=== PATIENT | female | born 1940 | race African-American/Black ===

== ENCOUNTER 2018-03-20 05:40 | Day surgery (SDC) | payer MEDICARE, OTHER ==
[2018-03-16 13:00] LABS: BASOPHILS % (AUTO) 1.1 % (0.0-2.0); EOSINOPHILS % (AUTO) 2.7 % (0.0-3.0); HEMATOCRIT 36.2 % (37.0-47.0); HEMOGLOBIN 11.3 G/DL (12.0-16.0); MEAN CORPUSCULAR VOLUME 71 FL (80-99); MONOCYTES % (AUTO) 9.5 % (1.0-10.0); NEUTROPHILS % (AUTO) 36.7 % (45.0-75.0); PLATELET COUNT 235 K/UL (150-450); RED CELL DISTRIBUTION WIDTH 13.7 % (11.6-14.8)
[2018-03-16 13:10] LABS: ANION GAP 8 mmol/L (5-15); BLOOD UREA NITROGEN 21 mg/dL (7-18); CALCIUM 9.3 MG/DL (8.5-10.1); CARBON DIOXIDE 30 MMOL/L (21-32); CHLORIDE 102 MMOL/L (98-107); CREATININE 0.9 MG/DL (0.55-1.30); POTASSIUM 4.2 MMOL/L (3.5-5.1); SODIUM 140 MMOL/L (136-145)
--- NOTE | 2018-03-16 22:45 | Pre-op HX & Phy Repo 2 SIG ---
DATE OF ADMISSION: 03/20/2018 PRESURGICAL INTERNAL MEDICINE HISTORY AND PHYSICAL DATE OF EVALUATION: 03/16/2018 REASON FOR EVALUATION: I was asked by Dr. Frederick Lemons to see this 77-year-old female, who is going for elective surgery on the right eye on 03/20/2018. The patient has nuclear sclerotic cataract, right eye. The patient was examined. Chart was reviewed at [facility] Procedure. The patient has a cataract. Please see history and physical of visitor services specialist, Dr. Frederick Lemons. PAST MEDICAL HISTORY AND REVIEW OF SYSTEMS: Remarkable for history of hypertension, diabetes mellitus type 2, degenerative joint disease, history of stroke in 1998 with hemiplegia, and history of GERD. No history of myocardial infarction. No respiratory problem, asthma or bronchitis. Denies history of hepatitis. No renal failure. No thyroid problem. PAST SURGICAL HISTORY: Hysterectomy 40 years ago. FAMILY HISTORY: Mother from brain aneurysm and father unknown. ALLERGIES: Not known. PRESENT MEDICATIONS: Include Tylenol, Aleve, Bengay for knee pain, statin, blood pressure and diabetes medications, and Nexium. SOCIAL HISTORY: Denies tobacco, alcohol use, or street drugs. PHYSICAL EXAMINATION: GENERAL: Alert, well-developed and well-nourished female, in her 70s in no acute distress. Ambulates with a cane. VITAL SIGNS: Blood pressure 165/72, temperature 97.6, pulse 61 and regular, and respirations 20. O2 saturation 98%. SKIN: Dry and warm. No rashes. No ulceration. LYMPHATICS: Lymph nodes not enlarged. HEENT: Head is normocephalic. Ears, clear. Eyes, full description per Dr. Frederick Lemons. Mouth, clear and moist. Wears dentures upper and lower. NECK: Supple. No jugular venous distention. Carotids artery 2+. Trachea midline. CHEST: No deformity or asymmetry. HEART: No murmur. No S3 or S4. ABDOMEN: Soft, benign. Liver and spleen not enlarged. No rebound. EXTREMITIES: No edema. No varicose veins. No calf tenderness. NEUROLOGIC: Post CVA with hemiplegia . LABORATORY AND DIAGNOSTIC DATA: ECG, normal sinus rhythm, 61 per minute. T-wave abnormality, consider lateral ischemia. White blood cells 4.0, hemoglobin 11.3, and hematocrit 36.3. BUN 21, creatinine 0.9. Sugar 170. Calcium 9.3. Sodium 140, potassium 4.3. IMPRESSION: 1. Nuclear sclerotic cataract, right eye. 2. Hypertension. 3. Diabetes mellitus type 2, controlled. 4. Post cerebrovascular accident. 5. Gastroesophageal reflux disease. 6. Degenerative joint disease, knee. 7. EKG changes consistent with . The patient is asymptomatic. PLAN: Cataract extraction, right eye with intraocular lens implant per Dr. Frederick Lemons. CONCLUSION: The patient has multiple medical problems including hypertension, diabetes, history of stroke, history of degenerative joint disease, anemia, mild EKG changes, . The patient to be NPO after midnight 03/20/2018. The patient's condition is optimized for surgery. Thank you very much, Dr. Lemons, for privilege to participate in presurgical care of this interesting patient. Steven Rudolph M.D. DR: NAYLA JOB#: [id number] CC:
--- NOTE | 2018-03-17 14:40 | Operative Note - PDOC ---
Operative Note Operative Note Date of Operation/Procedure: Mar 20, 2018 Chief Complaint: Blurry Vision Pre-op Diagnosis: Nuclear Sclerotic Cataract Procedure: Cataract Extraction With Inner Ocular Lens Implant Right Eye Post-op Diagnosis: same as pre-op Surgeon: Frederick Lemons MD Anesthesia: MAC Specimen: none Complications: none Fluids: LR Estimated Blood Loss: none Drains: none Implant(s) used?: Yes Indications for Procedure Nuclear Sclerotic Cataract Right Eye Description of Procedure Cataract Extraction With Inner Ocular Lens Implant Right Eye Frederick Lemons MD Mar 17, 2018 14:40
--- NOTE | 2018-03-17 14:44 | Opthalmology H&P ---
Ophthalmology H&P H&P Chief Complaint: decreased vision in right eye HPI Vision Affects Ability to: read, manage personal affairs HPI Narrative Blurry Vision Exam Visual Acuity: OD:COUNTING FINGERS OS: 20/40 Tension: OD16 OS 19 Eye Exam: normal OU: external exam, palpebral fissure-width, marginal reflex distance, levator function, corneas, anterior chambers; findings: lens - +3 NS/ PSC OD>OS, fundus exam - Poor view Assessment/Plan Treatment Plan: cataract extraction w/ lens implant Goals of Treatment: improvement of vision, enhance quality of life Attestation Attestation The risks and benefits of the surgery as well as alternative procedures were explained to the patient in detail. Frederick Lemons MD Mar 17, 2018 14:44
--- NOTE | 2018-03-17 14:45 | Pre-Procedure Note/Attestation ---
Pre-Procedure Note/Attestation Complete Prior to Procedure Planned Procedure: right Procedure Narrative: Cataract Extraction With Inner Ocular Lens Implant Right Eye Indications for Procedure Pre-Operative Diagnosis: Nuclear Sclerotic Cataract Right Eye Attestation I attest that I discussed the nature of the procedure; its benefits; risks and complications; and alternatives (and the risks and benefits of such alternatives ), prior to the procedure, with the patient (or the patient's legal u.s. representative). I attest that, if there was a reasonable possibility of needing a blood transfusion, the patient (or the patient's legal u.s. representative) was given the [facility] standardized written summary, pursuant to the [place] Blood Safety Act ([place] Health and Safety Code # 1645, as amended). I attest that I re-evaluated the patient just prior to the surgery and that there has been no change in the patient's H&P, except as documented below: Frederick Lemons MD Mar 17, 2018 14:45
--- NOTE | 2018-03-17 18:03 | Cardiology Report ---
APPROVED REPORT EKG Measurement Heart [id number] Normal sinus rhythm Abnormal ECG
[2018-03-20] VITALS (8 sets, daily range): BP systolic 146–161; BP diastolic 52–78
[~2018-03-20] VITALS: Ht 154.9 cm; Wt 72.1 kg
[2018-03-20] MEDS: Tropicamide 1% Opth 15ml Soln RIGHT EYE SCH ×3 (06:54→07:12)
[2018-03-20] MEDS: Tobramycin Op Soln 0.3% 5ml RIGHT EYE SCH ×3 (06:54→07:12)
[2018-03-20] MEDS: Phenylephrine 10% Opth Soln 5ml RIGHT EYE SCH ×3 (06:54→07:12)
[2018-03-20] MEDS: Diclofenac Sod 0.1% Op Soln RIGHT EYE SCH ×3 (06:54→07:12)
[2018-03-20] MEDS: Cyclopentolate 1% Opth Sol 2ml RIGHT EYE SCH ×3 (06:54→07:12)
[2018-03-20] MEDS ORDERED: Akten 3.5% 1ml Btl RIGHT EYE ONE (07:00)
[2018-03-20] MEDS ORDERED: Proparacaine 0.5% Opth Soln 15ml RIGHT EYE ONE (07:00)
[2018-03-20] MEDS ORDERED: Tetracaine 0.5% Opth 4ml Soln RIGHT EYE ONE (07:00)
[2018-03-20] MEDS ORDERED: AMLODIPINE BESY10 MG ORAL (07:01)
[2018-03-20] MEDS ORDERED: SPIRONOLACTONE25 MG ORAL (07:01)
[2018-03-20] MEDS ORDERED: METFORMIN HCL500 M1 ORAL (07:01)
[2018-03-20] MEDS ORDERED: ASPIR 8181 MG ORAL (07:01)
[2018-03-20] MEDS ORDERED: LOSARTAN-HCTZ1 EACH ORAL (07:01)
[2018-03-20] MEDS ORDERED: BUSPIRONE HCL10 M1 ORAL (07:01)
[2018-03-20] MEDS ORDERED: CRESTOR20 MG ORAL (07:09)
[2018-03-20] MEDS ORDERED: HYDROCHLOROTH12.5 MG ORAL (07:09)
[2018-03-20] MEDS ORDERED: CALCIUM + D3 E1 EACH PO (07:09)
[2018-03-20] MEDS ORDERED: FERROUS SULFAT325 MG ORAL (07:09)
[2018-03-20] MEDS ORDERED: TRAZODONE HCL50 MG ORAL (07:09)
[2018-03-20] MEDS ORDERED: METOPROLOL SUCC50 MG ORAL (07:09)
[2018-03-20] MEDS ORDERED: LORATADINE10 M1 PO (07:09)
[2018-03-20] MEDS ORDERED: JANUVIA100 MG ORAL (07:09)
[2018-03-20] MEDS ORDERED: NEXIUM40 MG ORAL (07:09)
[2018-03-20] MEDS ORDERED: GLIMEPIRIDE4 MG ORAL (07:09)
[2018-03-20] MEDS ORDERED: LOSARTAN POTAS100 MG ORAL (07:09)
[2018-03-20] MEDS ORDERED: VITAMIN D250000 UNI1 ORAL (07:09)
[2018-03-20] MEDS ORDERED: LR 1000ml 1,000 ML IVLG SCH (08:10)
[2018-03-20] MEDS ORDERED: fentaNYL 100 mcg/2 mL IV PRN (08:15)
--- NOTE | 2018-03-20 08:16 | Anethesia Preoperative Eval ---
Anesthesia Pre-op PMH/ROS General Date of Evaluation: Mar 20, 2018 Time of Evaluation: 07:55 Anesthesiologist: Eh ASA Score: ASA 3 Mallampati Score Class I : Soft palate, uvula, fauces, pillars visible Class II: Soft palate, uvula, fauces visible Class III: Soft palate, base of uvula visible Class IV: Only hard plate visible Mallampati Classification: Class II Surgeon: Vesta Diagnosis: Cataract right eye Surgical Procedure: Cataract extraction with IOL Allergies: Coded Allergies: No Known Allergies (Unverified , 03/20/18) Medications: see eMAR Patient NPO?: Yes NPO Date: Mar 19, 2018 NPO Time: 14:00 Past Medical History Cardiovascular: Reports: HTN; Denies: CAD, [place], valve dz, arrhythmia, other Pulmonary: Denies: asthma, COPD, STEFF, other Gastrointestinal/Genitourinary: Denies: GERD, CRI, ESRD, other Neurologic/Psychiatric: Denies: dementia, CVA, depression/anxiety, TIA, other Endocrine: Reports: DM; Denies: hypothyroidism, steroids, other HEENT: Reports: cataract (R); Denies: cataract (L), glaucoma, [place] (L), [place] (R), other Hematology/Immune: Denies: anemia, DVT, bleeding disorder, other Musculoskeletal/Integumentary: Denies: OA, RA, DJD, DDD, edema, other PMH Narrative: HTN, DM PSxH Narrative: GARDENIA Anesthesia Pre-op Phys. Exam Physician Exam Last Vital Signs Date Time Temp Pulse Resp B/P (MAP) Pulse Ox O2 Delivery O2 Flow Rate FiO2 03/20/18 07:09 Room Air 03/20/18 06:57 97.4 61 18 152/67 98 Constitutional: NAD Neurologic: CN 2-12 intact Cardiovascular: RRR, no M/R/G Respiratory: CTA Gastrointestinal: S/NT/ND Airway Exam Mallampati Score: Class II MO: full ROM: full Dentures: upper, lower Anesthesia Pre-op A/P Labs No contraindication Risk Assessment & Plan Assessment: Class 3 patient for cataract extraction with IOL Plan: MAC Pre-Antibiotics Drug: None Lukasz Stauffer MD Mar 20, 2018 08:16
--- NOTE | 2018-03-20 08:17 | Immediate Post-Op Evaluation ---
Immediate Post-Op Evalulation Immediate Post-Op Evalulation Procedure: Cataract extraction with IOL right eye Date of Evaluation: Mar 20, 2018 Time of Evaluation: 09:25 IV Fluids: 200 Blood Pressure Systolic: 157 Blood Pressure Diastolic: 72 Pulse Rate: 70 Respiratory Rate: 17 O2 Sat by Pulse Oximetry: 96 Temperature (Fahrenheit): 98.7 Pain Score (1-10): 0 Nausea: No Vomiting: No Complications No complication Patient Status: awake, patent, none Hydration Status: adequate Drug: None Lukasz Stauffer MD Mar 20, 2018 08:17
[2018-03-20] MEDS ORDERED: Propofol 200mg/20ml IV ONE (08:30)
[2018-03-20] MEDS ORDERED: Midazolam 2mg/2ml Inj ONE (08:30)
[2018-03-20] MEDS ORDERED: NS Irrig 1000ml ONE (08:30)
[2018-03-20] MEDS ORDERED: Sterile Water Irrig 1000ml IRRIG ONE (08:30)
[2018-03-20] MEDS ORDERED: LR 1000ml ONE (08:30)
--- NOTE | 2018-03-20 09:27 | 48 Hour Post Anesthesia Eval ---
Post Anesthesia Evaluation Procedure: Cataract extraction with IOL right eye Date of Evaluation: Mar 20, 2018 Time of Evaluation: 09:50 Blood Pressure Systolic: 158 0: 70 Pulse Rate: 67 Respiratory Rate: 18 O2 Sat by Pulse Oximetry: 97 Airway: patent Nausea: No Vomiting: No Pain Intensity: 0 Hydration Status: adequate Cardiopulmonary Status: stable Mental Status/LOC: patient returned to baseline Follow-up Care/Observations: As per surgery Post-Anesthesia Complications: No anesthetic complication Follow-up care needed: N/A Lukasz Stauffer MD Mar 20, 2018 09:27
[2018-03-20] MEDS ORDERED: BSS 15ml BTL ONE (10:10)
[2018-03-20] MEDS ORDERED: Sodium Hyaluronate 14 mg/ml 0.85ml ONE (10:10)
[2018-03-20] MEDS ORDERED: BSS 500ml btl ONE (10:10)
[2018-03-20] MEDS ORDERED: Maxitrol Opth Oint 3.5gm ONE (10:30)
[2018-03-20] MEDS ORDERED: Dexamethasone 4mg/ml vial ONE (10:30)
[2018-03-20] MEDS ORDERED: Pilocarpine 1% Opth 15ml Soln ONE (10:30)
[2018-03-20] MEDS ORDERED: Pred Forte 1% Opth Susp 1ml ONE (10:30)
[2018-03-20] MEDS ORDERED: Povidone-Iodine 5% opth solution ONE (10:57)
[2018-03-20] MEDS ORDERED: EPINEPHrine 1mg/1ml Amp ONE (10:57)
--- NOTE | 2018-03-21 14:51 | Brief Operative Note ---
Immediate Post Operative Note Operative Note Chief Complaint: blurry vision Pre-op Diagnosis: Nuclear Sclerotic Cataract Right Eye Procedure: Phaco with IOL, Right Eye Post-op Diagnosis: Pseudophakia Post-op Diagnosis: same as pre-op Findings: consistent w/pre-op dx studies Surgeon: Vesta Anesthesiologist: Eh Anesthesia: MAC Specimen: none Complications: none Condition: stable Fluids: LR Estimated Blood Loss: none Drains: none Implant(s) used?: Yes Frederick Lemons MD Mar 21, 2018 14:51
--- NOTE | 2018-03-21 14:54 | Operative Note - PDOC ---
Operative Note Operative Note Date of Operation/Procedure: Mar 20, 2018 Chief Complaint: blurry vision Pre-op Diagnosis: Nuclear Sclerotic Cataract Right Eye Procedure: Phaco with IOL, Right Eye Post-op Diagnosis: Pseudophakia Post-op Diagnosis: same as pre-op Operative Findings: consistent w/pre-op dx studies Surgeon: Vesta Anesthesiologist: Eh Anesthesia: MAC Specimen: none Complications: none Condition: stable Fluids: LR Estimated Blood Loss: none Drains: none Implant(s) used?: Yes Indications for Procedure cataract Description of Procedure This patient has been complaining visually significant cataract in the affected eye with the best corrected visual acuity under moderate glare conditions worse. The patient complains of difficulties with glare in performing activities of daily living and wants to manage personal affairs with comfort and accuracy and see well enough to move with safety at home and outdoors. The risks, benefits and alternatives of the procedure were discussed with the patient in the office prior to scheduling surgery. All questions from the patient were answered after the surgical procedure was explained in detail. The risks of the procedure as explained to the patient include, but are not limited to, pain, infection, bleeding, loss of vision, retinal detachment, need for further surgery, loss of lens nucleus, double vision, etc. Alternative procedures were discussed which include, to do nothing or seek a second opinion. Informed consent for this procedure was obtained from the patient. The patient was referred to a primary care physician for a cardiopulmonary clearance prior to surgery, after proper evaluation was done patient was properly scheduled for outpatient surgery. The patient was brought to the operating room where the anesthesiologist established I.V. lines and cardiac monitoring leads. Mild intravenous sedation was administered. The patient was then prepared with a 5% solution of povidone -iodine to the conjunctival fornix and lashes, and a 5% solution of povidone- iodine to the lids and periorbital skin. The patient was then draped in the usual sterile fashion. A lid speculum was then placed in the operative eye. A keratome blade was then used to create a biplanar incision into the anterior chamber. Viscoelastics was then instilled into the anterior chamber. A curvilinear capsulorrhexis was then fashioned with an utrata forceps followed by G- 7 cannula for hydrodissection and hydro delineation of the lens nucleus. Paracentesis incision was made at 3 o'clock with sharp blade. The phacoemulsification unit, after being properly adjusted and tested, was then used to emulsify the nucleus followed by aspiration and irrigation of residual cortical material. Healon was then instilled into the anterior chamber. The corneal wound was then enlarged to the size of the optic with the jerilyn keratome blade. The intraocular lens was then inspected for right power and size and thought to be satisfactory. Then the lens was gently placed in the capsular bag. Positioning within the capsular bag was confirmed by direct visualization. Optic centration was accomplished with a Sinskey hook. Viscoelastics was removed from the anterior chamber using the irrigation and aspiration unit. The corneal wound was then tested for leaks and none were found. The lid speculum were then removed. Sponge and needle counts were correct. An eye patch and shield were placed over the operative eye. The patient was taken to the recovery room in stable condition. There were no complications. The patient tolerated the procedure well. The patient was then transferred to the ambulatory surgery unit in stable and satisfactory condition , was given detailed written instructions and asked to follow up in the office the next day. Frederick Lemons MD Mar 21, 2018 14:54
== END 2018-03-20 10:35 | disposition home or self-care (01) ==
LOC: SUR 05:40
DX: H25.11 Age-related nuclear cataract, right eye (principal); I10 Essential (primary) hypertension; E11.9 Type 2 diabetes mellitus without complications; M17.10 Unilateral primary osteoarthritis, unspecified knee; K21.9 Gastro-esophageal reflux disease without esophagitis; I69.951 Hemiplegia and hemiparesis following unspecified cerebrovascular disease affecting right dominant side; Z90.710 Acquired absence of both cervix and uterus
CPT/HCPCS: 36415; 66984; 80048; 82962; 85025; 93005; J0171; J1100; J2250; J2704; J3370; V2632; 94003; 94150

== ENCOUNTER 2019-06-27 11:21 | Inpatient (IN) | payer MEDICARE, OTHER ==
[~2019-06-27] VITALS: Ht 165.1 cm; Wt 83.0 kg
[~2019-06-27 11:21] MED LIST: AMLODIPINE BESY10 MG ORAL; ASPIR 8181 MG GT; BUSPIRONE HCL10 M1 ORAL; CALCIUM + D3 E1 EACH PO; CRESTOR20 MG ORAL; FERROUS SULFAT325 MG ORAL; GLIMEPIRIDE4 MG ORAL; HYDROCHLOROTH12.5 MG ORAL; JANUVIA100 MG ORAL; LORATADINE10 M1 PO; LOSARTAN POTAS100 MG ORAL; LOSARTAN-HCTZ1 EACH ORAL; METFORMIN HCL500 M1 ORAL; METOPROLOL SUCC50 MG ORAL; NEXIUM40 MG ORAL; SPIRONOLACTONE25 MG ORAL; TRAZODONE HCL50 MG ORAL; VITAMIN D250000 UNI1 ORAL
--- NOTE | 2019-06-27 11:27 | NUR ---
ED Nurse Note: Pt was brought in by ambulance from [facility] d/t altered mental status. Per EMS pt's typically responsive to name and place; now's awake and alert and non-verbal, responsive to painful stimuli. Pt arrived with GT, intact. Pt's FULL CODE. VSS, satting at 95% on RA; denies any SOB. Placed on bed. Isolation prec. initiated. will continue to monitor.
[2019-06-27 12:00] VITALS: BP 151/80
--- NOTE | 2019-06-27 12:20 | NUR ---
ED Nurse Note: X-ray at bedside, done.
--- NOTE | 2019-06-27 12:55 | Emergency Room Report ---
History of Present Illness General Chief Complaint: Altered Level of Consciousness Source: Medical Record Present Illness HPI 78-year-old female presents ED for evaluation. Resides in custodial facility. More altered than baseline x1 day. Not answering questions. No signs of distress. Accu-Chek over 500. No reported fevers or chills. No reported cough. No signs of distress on arrival. No other aggravating relieving factors. Denies any other associated symptoms Allergies: Coded Allergies: No Known Allergies (Unverified , 03/20/18) COVID-19 Screening Contact w/high risk pt: No Recent Travel to affected area: No Experienced COVID-19 symptoms?: No Patient History Past Medical History: DM, HTN, CVA/TIA Pertinent Family History: none Social History: Denies: smoking, alcohol use, drug use Now: No Immunizations: UTD Reviewed Nursing Documentation: PMH: Agreed; PSxH: Agreed Nursing Documentation-PMH Hx Cardiac Problems: Yes Hx Hypertension: Yes Hx Diabetes: Yes Hx Cancer: No Hx Gastrointestinal Problems: No Hx Neurological Problems: Yes - aphasia, dysphagia Hx Cerebrovascular Accident: Yes - 1998- no weakness at this time, hemiplegia hemiparesis Review of Systems All Other Systems: limited Physical Exam Vital Signs Date Time Temp Pulse Resp B/P (MAP) Pulse Ox O2 Delivery O2 Flow Rate FiO2 06/27/19 11:15 97.9 97 20 151/80 (103) 96 Room Air Sp02 EP Interpretation: reviewed, normal General Appearance: no apparent distress, lethargic Head: normocephalic Eyes: bilateral eye normal inspection, bilateral eye PERRL ENT: normal ENT inspection Neck: normal inspection Respiratory: chest non-tender, lungs clear, normal breath sounds, speaking full sentences Cardiovascular #1: regular rate, rhythm, no edema Gastrointestinal: normal bowel sounds, non tender, soft, non-distended, no guarding, no rebound Rectal: deferred Genitourinary: no CVA tenderness Musculoskeletal: back normal Neurologic: other - lethargic Psychiatric: other - lethargic Skin: other - see nursing skin notes Lymphatic: normal inspection Procedures Critical Care Time Critical Care Time i. I feel this is a highly complex case requiring extensive working including EKG/Rhythm strip, Xray/CT/US, Blood/urine lab work, repeat exams while in ED, and administration of strong opiates/narcotics for pain control, admission to hospital or close patient follow up. Total time: 30 min bedside evaluation and treatment excludes procedures (EKG). Reason for critical care: hyperkalemia, hyperglycemia, UTI, renal failure Possible complications: hypotension, hypertension, AR, shock, arrhythmias, metabolic acidosis, end organ damage, respiratory failure. Interventions: Labs, EKG, chest x-ray, CT head, IV fluids, insulin, calcium, antibiotics Course: Patient presenting with altered mental status. Accu-Chek greater than 500. CT head shows old infarct. Chest x-ray unremarkable. UA shows UTI. Glucose greater than 600. No evidence of DKA. Lactic greater than 2.5. Potassium 7.4. BUN/creatinine elevated. Troponin 0.109. Given insulin. Given IV fluids. Given antibiotics. Given calcium. Consultations: nursing staff, EMS, family Performed by: Dr Miller Tolerated well condition = serious j. because of unstable vital signs this patient had a condition that could potentially threaten life or limb. I feel this is a critical patient who required my full attention while patient was considered critical. Total Critical Care Time excluding procedures was greater than 35 minutes Medical Decision Making Diagnostic Impression: Primary Impression: Acute encephalopathy Additional Impressions: Hyperglycemia Hyperkalemia, diminished renal excretion Renal failure Qualified Codes: N17.8 - Other acute kidney failure UTI (urinary tract infection) Qualified Codes: N39.0 - Urinary tract infection, site not specified Sepsis Qualified Codes: A41.9 - Sepsis, unspecified organism ER Course Hospital Course 78-year-old female presenting to ED with generalized weakness, accucheck > 500 Differential diagnoses include: Pneumonia, UTI, sepsis, dehydration, AR/ unstable angina Clinical course Patient placed on stretcher. in isolation. i wore full PPE. On desk monitor with stable vitals are ED course. After initial history and physical, I ordered labs, IV fluids, EKG, chest x-ray, blood cultures, UA. Labs - BUN/Cr markedly elevated, glucose > 600 no evidence of DKA. K 7.4. trop 0.109, UA + bacteria EKG - NSR, no acute ischemic changes interpreted by me CXR - no acute process CT head - no acute process Abx given. 30 cc/kg fluid bolus. Given calcium/insulin. COVID swab sent Case discussed with Dr Storm and they agreed to admit patient to their service for further care and support I feel this is a highly complex case requiring extensive working including EKG/ Rhythm strip, Xray/CT/US, Blood/urine lab work, repeat exams while in ED, and administration of strong opiates/narcotics for pain control, admission to hospital or close patient follow up. Diagnosis -acute encephalopathy, hyperglycemia, hyperkalemia, renal failure, UTI , sepsis Patient admitted to telemetry in serious condition Labs Test 06/27/19 11:50 White Blood Count 10.5 K/UL (4.8-10.8) Red Blood Count 4.09 M/UL (4.20-5.40) Hemoglobin 9.8 G/DL (12.0-16.0) Hematocrit 31.9 % (37.0-47.0) Mean Corpuscular Volume 78 FL (80-99) Mean Corpuscular Hemoglobin 24.0 PG (27.0-31.0) Mean Corpuscular Hemoglobin Concent 30.7 G/DL (32.0-36.0) Red Cell Distribution Width 14.1 % (11.6-14.8) Platelet Count 212 K/UL (150-450) Mean Platelet Volume 8.7 FL (6.5-10.1) Neutrophils (%) (Auto) 76.8 % (45.0-75.0) Lymphocytes (%) (Auto) 17.4 % (20.0-45.0) Monocytes (%) (Auto) 4.6 % (1.0-10.0) Eosinophils (%) (Auto) 0.5 % (0.0-3.0) Basophils (%) (Auto) 0.6 % (0.0-2.0) Urine Color Grecia Urine Appearance Slightly cloudy Urine pH 5 (4.5-8.0) Urine Specific Ranger 1.025 (1.005-1.035) Urine Protein 3+ (NEGATIVE) Urine Glucose (UA) Negative (NEGATIVE) Urine Ketones 1+ (NEGATIVE) Urine Blood 4+ (NEGATIVE) Urine Nitrite Negative (NEGATIVE) Urine Bilirubin Negative (NEGATIVE) Urine Ictotest Negative (NEGATIVE) Urine Urobilinogen 1 MG/DL (0.0-1.0) Urine Leukocyte Esterase 3+ (NEGATIVE) Urine RBC Tntc /HPF (0 - 2) Urine WBC Tntc /HPF (0 - 2) Urine Squamous Epithelial Cells Many /LPF (NONE/OCC) Urine Bacteria Many /HPF (NONE) Sodium Level 159 MMOL/L (136-145) Potassium Level 7.4 MMOL/L (3.5-5.1) Chloride Level 125 MMOL/L (98-107) Carbon Dioxide Level 21 MMOL/L (21-32) Anion Gap 14 mmol/L (5-15) Blood Urea Nitrogen 165 mg/dL (7-18) Creatinine 2.9 MG/DL (0.55-1.30) Estimat Glomerular Filtration Rate 19.0 mL/min (>60) Glucose Level 655 MG/DL (74-106) Lactic Acid Level 2.00 mmol/L (0.4-2.0) Calcium Level 10.1 MG/DL (8.5-10.1) Magnesium Level 3.5 MG/DL (1.8-2.4) Total Bilirubin 0.2 MG/DL (0.2-1.0) Aspartate Amino Transf (AST/SGOT) 196 U/L (15-37) Alanine Aminotransferase (ALT/SGPT) 219 U/L (12-78) Alkaline Phosphatase 115 U/L (46-116) Creatine Kinase MB 3.8 NG/ML (0.0-3.6) Troponin I 0.109 ng/mL (0.000-0.056) Pro-B-Type Natriuretic Peptide 524 pg/mL (0-125) Total Protein 8.2 G/DL (6.4-8.2) Albumin 2.8 G/DL (3.4-5.0) Globulin 5.4 g/dL Albumin/Globulin Ratio 0.5 (1.0-2.7) Acetone Level Negative (NEGATIVE) EKG Diagnostic Results Rate: normal Rhythm: NSR ST Segments: no acute changes ASA given to the pt in ED: No Rhythm Strip Diag. Results EP Interpretation: yes Rhythm: NSR, no PVC's, no ectopy Chest X-Ray Diagnostic Results Chest X-Ray Diagnostic Results : Chest X-Ray Ordered: Yes # of Views/Limited/Complete: 1 View Indication: Other EP Interpretation: Yes Interpretation: no consolidation, no effusion, no pneumothorax, no acute cardiopulmonary disease Impression: No acute disease Electronically Signed by: Electronically signed by Jonathan Miller MD CT/MRI/US Diagnostic Results CT/MRI/US Diagnostic Results : Imaging Test Ordered: CT head Impression Findings: There is encephalomalacia of the left posterior frontal lobe. There is age-related enlargement of the ventricles and extra-axial CSF spaces and periventricular deep white matter low-attenuation consistent with chronic microvascular ischemic change. No acute intracranial hemorrhage or edema. No mass effect nor midline shift. The calvarium is intact. The mastoids are clear. The visualized sinuses are clear. Visualized orbits are unremarkable. Impression: Old left frontal infarct Other chronic and age-related changes as described Negative for acute intracranial bleed or mass effect The CT scanner at [facility] is accredited by the [employer] and the scans are performed using protocols designed to limit radiation exposure to as low as reasonably achievable to attain images of sufficient resolution adequate for diagnostic evaluation. Last Vital Signs Date Time Temp Pulse Resp B/P (MAP) Pulse Ox O2 Delivery O2 Flow Rate FiO2 06/27/19 11:15 97.9 97 20 151/80 (103) 96 Room Air Status: improved Disposition: ADMITTED INPATIENT Condition: Serious Jonathan Miller MD Jun 27, 2019 12:55
--- NOTE | 2019-06-27 13:00 | NUR ---
ED Nurse Note: Noted pressure ulcer on sacral area. Pt on stable condition, VSS, on RA, NAD noted.
[2019-06-27 13:07] LABS: BASOPHILS % (AUTO) 0.6 % (0.0-2.0); EOSINOPHILS % (AUTO) 0.5 % (0.0-3.0); HEMATOCRIT 31.9 % (37.0-47.0); HEMOGLOBIN 9.8 G/DL (12.0-16.0); LYMPHOCYTES % (AUTO) 17.4 % (20.0-45.0); MEAN CORPUSCULAR VOLUME 78 FL (80-99); MONOCYTES % (AUTO) 4.6 % (1.0-10.0); NEUTROPHILS % (AUTO) 76.8 % (45.0-75.0); PLATELET COUNT 212 K/UL (150-450); RED BLOOD COUNT 4.09 M/UL (4.20-5.40); RED CELL DISTRIBUTION WIDTH 14.1 % (11.6-14.8); WHITE BLOOD COUNT 10.5 K/UL (4.8-10.8)
[2019-06-27 13:22] LABS: APPEARANCE,URINE SLIGHTLY CLOUDY; BILIRUBIN, URINE NEGATIVE (NEGATIVE); COLOR,URINE AMBER; GLUCOSE, URINE (UA) NEGATIVE (NEGATIVE); KETONES,URINE 1+ (NEGATIVE); LEUKOCYTE ESTERASE ,URINE 3+ (NEGATIVE); NITRITE,URINE NEGATIVE (NEGATIVE); PH,URINE 5 (4.5-8.0); PROTEIN,URINE 3+ (NEGATIVE); UROBILINOGEN,URINE 1 MG/DL (0.0-1.0)
--- NOTE | 2019-06-27 13:33 | Diagnostic Imaging Report ---
Indications: Altered mental status Technique: Spiral acquisitions obtained through the brain. Angled axial and coronal 5 x 5 mm slices were reconstructed. Total dose length product 1018 mGycm. CTDI vol(s) 52 mGy. Dose reduction achieved using automated exposure control Comparison: None. Findings: There is encephalomalacia of the left posterior frontal lobe. There is age-related enlargement of the ventricles and extra-axial CSF spaces and periventricular deep white matter low-attenuation consistent with chronic microvascular ischemic change. No acute intracranial hemorrhage or edema. No mass effect nor midline shift. The calvarium is intact. The mastoids are clear. The visualized sinuses are clear. Visualized orbits are unremarkable. Impression: Old left frontal infarct Other chronic and age-related changes as described Negative for acute intracranial bleed or mass effect The CT scanner at [facility] is accredited by the [employer] and the scans are performed using protocols designed to limit radiation exposure to as low as reasonably achievable to attain images of sufficient resolution adequate for diagnostic evaluation.
[2019-06-27 13:41] LABS: ALANINE AMINOTRANSFERASE 219 U/L (12-78); ALBUMIN 2.8 G/DL (3.4-5.0); ALBUMIN/GLOBULIN RATIO 0.5 (1.0-2.7); ALKALINE PHOSPHATASE 115 U/L (46-116); ANION GAP 14 mmol/L (5-15); ASPARTATE AMINO TRANSFERASE 196 U/L (15-37); BILIRUBIN,TOTAL 0.2 MG/DL (0.2-1.0); BLOOD UREA NITROGEN 165 mg/dL (7-18); CALCIUM 10.1 MG/DL (8.5-10.1); CARBON DIOXIDE 21 MMOL/L (21-32); CHLORIDE 125 MMOL/L (98-107); CKMB 3.8 NG/ML (0.0-3.6); CREATININE 2.9 MG/DL (0.55-1.30); SODIUM 159 MMOL/L (136-145)
--- NOTE | 2019-06-27 13:44 | Diagnostic Imaging Report ---
Indication: Shortness of breath Technique: One view of the chest Comparison: none Findings: Lungs and pleural spaces are clear. Heart size is normal. There are degenerative changes of the thoracic spine Impression: No acute process
[2019-06-27 13:48] LABS: POTASSIUM 7.4 MMOL/L (3.5-5.1)
[2019-06-27 14:00] VITALS: BP 122/60
[2019-06-27] MEDS ORDERED: Insulin Human Regular 100units/ml 3ml IV ONE (14:00)
[2019-06-27] MEDS ORDERED: Sodium Chloride 2,200 ML IVLG ONE (14:00)
[2019-06-27] MEDS ORDERED: Calcium Gluconate 1gm/10ml vial IVP ONE (14:00)
[2019-06-27] MEDS ORDERED: cefTRIAXone 1 GM in NS 55 ML IVPB ONE (14:00)
[2019-06-27] MEDS ORDERED: LISINOPRIL20 MG GT (14:14)
[2019-06-27] MEDS ORDERED: LIPITOR20 MG GT (14:14)
[2019-06-27] MEDS ORDERED: NORCO 5-325 TA1 EAC1 GT (14:14)
[2019-06-27] MEDS ORDERED: PRO-STAT LIQUID30 ML GT (14:14)
[2019-06-27] MEDS ORDERED: MULTIVITAMINS1 EAC8 GT (14:14)
[2019-06-27] MEDS ORDERED: HYDRALAZINE HCL25 M1 GT (14:14)
[2019-06-27] MEDS ORDERED: LOPRESSOR HCT1 EAC3 GT (14:14)
[2019-06-27] MEDS ORDERED: REGLAN5 MG GT (14:14)
[2019-06-27] MEDS ORDERED: LACTULOSE20 GM/301 GT (14:14)
[2019-06-27] MEDS ORDERED: HUMALOG 75/255 UNITS SUBQ (14:14)
[2019-06-27] MEDS ORDERED: FERROUS SU220 MG/53 GT (14:14)
[2019-06-27] MEDS ORDERED: ISOSORBIDE DINI40 M1 GT (14:14)
[2019-06-27] MEDS ORDERED: NEOSPORIN OINT30 GM TOPIC (14:14)
[2019-06-27] MEDS ORDERED: TYLENOL325 MG GT (14:14)
--- NOTE | 2019-06-27 15:19 | NUR ---
ED Nurse Note: Latest Acchucheck 539mg/dl, notified Dr Hughes. Hydration on IV site on-going, intact and infusing well.
[2019-06-27] MEDS ORDERED: Acetaminophen 650 MG SUPP RECTAL PRN ×2 (16:00)
[2019-06-27] MEDS ORDERED: Miralax 17gm pkt ORAL PRN (16:00)
[2019-06-27] MEDS ORDERED: Nitroglycerin Subl 0.4mg tab SL PRN (16:00)
[2019-06-27] MEDS ORDERED: NovoLOG Insulin Flexpen SUBQ SCH ×2 (16:30)
[2019-06-27 16:35] VITALS: BP 121/50
--- NOTE | 2019-06-27 16:58 | NUR ---
ED Nurse Note: IV left AC noted to be infiltrated edematous and reddened; d/c iv. IV access established on right hand 20g; intact flushed and patent.
[2019-06-27] MEDS: Aspirin Baby 81mg ORAL SCH (17:07)
--- NOTE | 2019-06-27 17:21 | NUR ---
ED Nurse Note: latest accucheck done with 449mg/dl. Called pharmacy to verify insulin flexpen order.
[2019-06-27] MEDS: NovoLOG Insulin Flexpen SUBQ SCH ×2 (17:28→22:45)
[2019-06-27] MEDS: Nitroglycerin Patch 0.4mg TDERMAL SCH (17:37)
--- NOTE | 2019-06-27 17:50 | NUR ---
ED Nurse Note: Received stat order of BMP from Dr. Storm as verbalized by Dr. Hughes. Blood drawn; sent to labs.
[2019-06-27 18:36] LABS: ANION GAP 13 mmol/L (5-15); BLOOD UREA NITROGEN 143 mg/dL (7-18); CALCIUM 9.5 MG/DL (8.5-10.1); CARBON DIOXIDE 21 MMOL/L (21-32); CHLORIDE 129 MMOL/L (98-107); CREATININE 2.3 MG/DL (0.55-1.30); POTASSIUM 5.8 MMOL/L (3.5-5.1)
[2019-06-27 18:43] LABS: SODIUM 163 MMOL/L (136-145)
--- NOTE | 2019-06-27 19:10 | NUR ---
ED Nurse Note: Hand off given to Corey Dai RN for continuity of care.
[2019-06-27 19:30] VITALS: BP 152/73
--- NOTE | 2019-06-27 19:30 | NUR ---
ED Nurse Note: Received patient from NANI Ferguson. Patient laying in bed with no acute signs of distress. Awake and tracks movement with eyes; lacks purposeful movement; withraws to painful stimuli; aphasic. Vitals stable to baseline. Room air; spo2 100% IV present on right hand; flushed and patent; fluids running as prescribed. gtube noted; flushed and patent. pack inserted per md order. blood sugar assessed; 295; md aware; continue with plan of care. removed soiled linens;provided new gown and linens. sacral wound noted. endorsed by previous shift that wound care photo taken and uploaded.
[2019-06-27 21:00] VITALS: BP 135/52
--- NOTE | 2019-06-27 21:15 | NUR ---
TRANSFER TO FLOOR: Patient transferred to [facility] 211-2 as ordered, per maximiliano rodrigues. Report given to Fatemeh CARDOZA. Patient stable for transfer. transported to unit via [place] with rn and assurance manager. belongings and admission packet sent with patent. droplet precautions observed; pt wearing mask. endorsed to receiving rn sacreal wound.
--- NOTE | 2019-06-27 21:20 | NUR ---
NURSE NOTES: Patient arrived at the unit at 21:20 via gurney by 2 ED personnel. Report previously received from NANI Tolbert. Patient AOx1. Aphasic but opens eyes spontaneously. RH #22g IV intact and flushed; no erythema, bleeding, or infiltration. Skin noted to have some areas of discoloration. Stage 3 sacral would ulcer noted and R heel DTI. R heel offloaded with 1 pillow. On room air, saturating at 97%. Bed in lowest position. droplet and contact precautions followed. Patient arrived with mask. Bed rails raised x3. Call light placed within reach. Admission orders from [facility] acknowledged. Will continue to monitor. Process plans initiated. Also for wound care consult.
[2019-06-27] MEDS: Heparin 5000 units/ml inj SUBQ SCH (22:43)
[2019-06-27] MEDS: Levemir Flexpen SUBQ SCH (22:44)
--- NOTE | 2019-06-28 01:00 | Consultation ---
DATE OF CONSULTATION: HISTORY OF PRESENT ILLNESS: The patient is a 78-year-old female who [facility]. She has a history of cerebrovascular disease and baseline dementia. She has been more confused, altered, and lethargic than her usual baseline state. She has not been answering any questions, but has not had any specific complaints. The patient has not had any chest pain, shortness of breath, cough, or fevers. Her workup in the emergency room was notable for significantly elevated blood glucose level and elevated troponin level. I have been asked to assist with cardiac care. PAST MEDICAL HISTORY: Type 2 diabetes mellitus, hypertension with hypertensive heart disease, cerebrovascular disease with history of CVA, dysphagia, and history of cerebrovascular accident. ALLERGIES: None. MEDICATIONS: Reviewed and reconciled. FAMILY HISTORY: Noncontributory. SOCIAL HISTORY: Negative for smoking, alcohol, or substance abuse. REVIEW OF SYSTEMS: Not obtainable from the patient. However, 25 minutes spent for review of prior medical records and pertinent data has been outlined above. PHYSICAL EXAMINATION: VITAL SIGNS: Temperature 151/80, heart rate 97, respiratory rate 20, and afebrile. HEENT: Temporal wasting. Pale conjunctivae. Oropharynx clear. Mucous membranes dry. NECK: Supple. Jugular venous pressure normal. No bruits. LUNGS: Clear. CARDIAC: Regular. Normal S1, S2. A 1/6 systolic murmur at base. ABDOMEN: Soft and nontender. EXTREMITIES: No edema. SKIN: Intact. NEUROLOGIC: Reveals her to be withdrawn and lethargic. LABS: Glucose 600. Lactate negative. White count 10, hemoglobin 10. Sodium 159, potassium 7.4, chloride 125, bicarb 21, BUN 165, creatinine 2.9. Glucose 655, magnesium 3.5. Troponin 0.109. Pro-natriuretic peptide 524. Albumin 2.8. Chest x-ray, no acute process. CAT scan of the brain reveals old left frontal infarct. EKG sinus rhythm, nonspecific ST-T wave changes. IMPRESSION: 1. Hyperkalemia. 2. Hyperosmolar nonketotic coma. 3. Metabolic encephalopathy and toxic encephalopathy. 4. Acute myocardial ischemia. 5. Acute renal failure. 6. Urinary tract infection with sepsis. 7. Critical and guarded. PLAN: IV fluid hydration, insulin titration, anti-platelet therapy, DVT prophylaxis, follow up potassium levels after giving Kayexalate. Consider beta-adelia if blood pressure parameters can tolerate. Cardiac monitoring. Further recommendations will follow. Ck Lazaro M.D. DR: ISAAC JOB#: [id number] CC:
[2019-06-28] MEDS: NovoLOG Insulin Flexpen SUBQ SCH ×4 (06:48→21:00)
--- NOTE | 2019-06-28 07:28 | NUR ---
HAND-OFF: Report given to NANI Vuong. Plan of care endorsed.
--- NOTE | 2019-06-28 08:00 | NUR ---
In Bed, awake, opens eyes spontaneously when name is called. responds only by crying. incontinent of stool, soft formed dark brown. pack catheter intact. draining clear yellow urine. will continue to monitor.
--- NOTE | 2019-06-28 08:32 | NUR ---
RD ASSESSMENT & RECOMMENDATIONS SEE CARE ACTIVITY FOR COMPLETE ASSESSMENT DAILY ESTIMATED NEEDS: Needs based on Renal, DM, wound 48kg abw 28-33 kcals/kg 9497-5153 total kcals .8-1.25 g protein/kg 38-60 g total protein Fluid per MD NUTRITION DIAGNOSIS: Increased kcal and pro needs r/t wound healing as evidenced by stage 3 sacral wound, pt is GT dep. ENTERAL NUTRITION RECOMMENDATIONS: NEPRO goal @32ml/hr x24 hrs to provide 768ml, 1382 kcal, 62g pro, 558 ml free H2O - As medically able, rec to initiate TF's of NEPRO-> Start @22ml/hr for 6 hrs. - Advance as tolerated 10ml/hr q4-6 hrs to goal - Flush per MD / HOB over 30 degrees * TF at goal meet 100% est kcal and 103% est pro needs. -------- ADDITIONAL RECOMMENDATIONS: 1) Per SNF-> 58" tall and 135 lbs Maintain calibrated bed scale wts 2) Wound care: add FRANKY in 4oz H2O BID via GT + Nephrovite/ MVI per MD + Vit C per MD 3) Monitor lytes and renal labs 4) F/up w/ H&P
[2019-06-28 09:05] LABS: BASOPHILS % (AUTO) 0.5 % (0.0-2.0); EOSINOPHILS % (AUTO) 2.1 % (0.0-3.0); HEMOGLOBIN 8.4 G/DL (12.0-16.0); LYMPHOCYTES % (AUTO) 26.4 % (20.0-45.0); MEAN CORPUSCULAR VOLUME 76 FL (80-99); MONOCYTES % (AUTO) 4.3 % (1.0-10.0); NEUTROPHILS % (AUTO) 66.8 % (45.0-75.0); PLATELET COUNT 182 K/UL (150-450); RED BLOOD COUNT 3.53 M/UL (4.20-5.40); RED CELL DISTRIBUTION WIDTH 13.5 % (11.6-14.8); WHITE BLOOD COUNT 13.9 K/UL (4.8-10.8)
[2019-06-28] MEDS: Aspirin Baby 81mg ORAL SCH (09:13)
[2019-06-28] MEDS: Heparin 5000 units/ml inj SUBQ SCH (09:15)
[2019-06-28 09:40] LABS: ALANINE AMINOTRANSFERASE 130 U/L (12-78); ALBUMIN 2.5 G/DL (3.4-5.0); ALBUMIN/GLOBULIN RATIO 0.6 (1.0-2.7); ALKALINE PHOSPHATASE 83 U/L (46-116); ANION GAP 14 mmol/L (5-15); ASPARTATE AMINO TRANSFERASE 56 U/L (15-37); BILIRUBIN,TOTAL 0.3 MG/DL (0.2-1.0); BLOOD UREA NITROGEN 112 mg/dL (7-18); CALCIUM 9.4 MG/DL (8.5-10.1); CARBON DIOXIDE 22 MMOL/L (21-32); CHLORIDE 134 MMOL/L (98-107); CREATININE 1.7 MG/DL (0.55-1.30)
[2019-06-28 09:45] LABS: SODIUM 169 MMOL/L (136-145)
--- NOTE | 2019-06-28 10:00 | NUR ---
Hand Off to NANI Marie.
[2019-06-28 10:01] VITALS: BP 142/53
[2019-06-28 11:45] VITALS: BP 140/61
--- NOTE | 2019-06-28 11:48 | NUR ---
CASE MANAGEMENT:REVIEW 78 YR OLD FEMALE BIBA FROM [facility] CC: AMS. HYPERGLYCEMIA. BS 500. SAT 91% ON RA SI: ACUTE ENCEPHALOPATHY. RENAL FAILURE HYPERGLYCEMIA. HYPERKALEMIA. UTI 97.9 97 20 151/80 96% ON RA NA+159 K+7.4 BUN+165 CR+2.9 GLUCOSE+655 TROPONIN(+) 0.109 IS: 500CC NS BOLUS CHEST XRAY CT HEAD URINE CX BLOOD CX CHEST XRAY URINE CX BLOOD CX : TO TELEMETRY DCP: FROM [facility] PLAN: R/O COVID 19
--- NOTE | 2019-06-28 11:57 | NUR ---
CASE MANAGEMENT:REVIEW 78 YR OLD FEMALE BIBA FROM [facility] CC: AMS. HYPERGLYCEMIA. BS 500. SAT 91% ON RA SI: ACUTE ENCEPHALOPATHY. RENAL FAILURE HYPERGLYCEMIA. HYPERKALEMIA. UTI 97.9 97 20 151/80 96% ON RA NA+159 K+7.4 BUN+165 CR+2.9 GLUCOSE+655 TROPONIN(+) 0.109 IS: 500CC NS BOLUS IV ROCEPHIN IV INSULIN IV CA GLUCONATE CHEST XRAY CT HEAD URINE CX BLOOD CX CHEST XRAY URINE CX BLOOD CX : TO TELEMETRY DCP: FROM [facility] PLAN: R/O COVID 19
--- NOTE | 2019-06-28 13:00 | NUR ---
NURSE NOTES: Pt was placed on P200 mattress. wound care consult still pending. foam dressing on pt.
--- NOTE | 2019-06-28 14:29 | History and Physical Report ---
DATE OF ADMISSION: 06/27/2019 CHIEF COMPLAINT AND REASON FOR HOSPITALIZATION: The patient admitted with uncontrolled diabetes, acute renal failure, hyperkalemia, weakness. HISTORY OF PRESENT ILLNESS: The patient is a 78-year-old lady, resident of an [facility]. She presents with lab abnormalities, lethargy, weakness. She is unable to provide any medical history. Scanty records are listed from the [facility] with the following medical problems: aphasia following cerebral infarction, hemiplegia and hemiparesis on the right dominant side, dysphagia, type 2 diabetes with autonomic polyneuropathy, protein-calorie malnutrition, lack of coordination, muscle wasting, pressure ulcer stage III, prior acute kidney failure, iron deficiency anemia, hyperlipidemia, long-term use of insulin, essential hypertension, long-term use of aspirin. MEDICATIONS: Medications at the [facility] include enteral feedings via gastrostomy with water flushes. She is also taking the following medications: aspirin 81 mg daily, hydralazine 25 mg three times a day, regular insulin sliding scale, iron elixir 7.5 mL two times a day, isosorbide one tablet three times a day, lactulose 30 mL daily, Lipitor 20 mg daily, lisinopril 20 mg two times a day, Lopressor 25 mg two times a day, multivitamins with minerals one daily, Graff p.r.n., ProStat 30 mL daily, metoclopramide 5 mg t.i.d., triple antibiotic for pressure ulcer, Tylenol p.r.n., and vitamin C daily. Note that other med list shows that she is taking diuretics with hydrochlorothiazide and spironolactone, but is not clear if that is correct. CODE STATUS: Full code as discussed with the family. PAST MEDICAL HISTORY: Other than above, unavailable. REVIEW OF SYSTEMS: Other than above, unavailable. PHYSICAL EXAMINATION: GENERAL: The patient is lying in bed, lethargic. HEAD, EYES, EARS, NOSE, AND THROAT: Her eyes are closed. Oral mucosa is dry. NECK: No adenopathy. LUNGS: Clear. HEART: Regular rhythm. ABDOMEN: Obese and soft with a gastrostomy. EXTREMITIES: No edema. NEUROLOGIC: She is aphasic and unable to cooperate for testing. LABORATORY DATA: Pertinent labs are reviewed in the computer, which is now working well and we will be as follows: White count 10.5, hemoglobin is 9.8, microcytic and her chemistries showed a high potassium, high BUN and creatinine, high sodium with the sodium 163, potassium 5.8, BUN 143, and creatinine 2.3, which is improved from the initial ER, which is now listed here. Her glucose was 655 and apparently over 800 by a fingerstick. IMPRESSION: 1. Insulin-dependent diabetes with hyperosmolar and hyperglycemia. There are no ketones noted. 2. Dehydration, prerenal azotemia, prior BUN and creatinine a year ago were normal. 3. Hyperkalemia. 4. Hypernatremia. 5. Moderate protein-calorie malnutrition. 6. Old CVA. 7. History of hypertension. 8. Elevated troponin, repeat pending. 9. Debility. PLAN: Vigorous hydration. Monitoring of electrolytes and glucose, adjustment of insulin. She also has pyuria and presumed UTI, which will be treated with empiric antibiotics. Her condition is serious. I discussed with the family. Kristopher Storm M.D. DR: ALICIA JOB#: [id number] CC:
--- NOTE | 2019-06-28 14:58 | NUR ---
NURSE NOTES: Left message for Dr Storm, pt had episode of what appears to be bleeding from vaginal area. Awaiting call back
[2019-06-28] MEDS ORDERED: Vancomycin 1.5gm/NS Premix q24h IVPB SCH (15:00)
[2019-06-28 16:00] VITALS: BP 138/67
[2019-06-28 17:04] LABS: HEMATOCRIT 26.2 % (37.0-47.0); HEMOGLOBIN 7.5 G/DL (12.0-16.0); MEAN CORPUSCULAR VOLUME 82 FL (80-99); PLATELET COUNT 173 K/UL (150-450); RED BLOOD COUNT 3.22 M/UL (4.20-5.40); RED CELL DISTRIBUTION WIDTH 15.4 % (11.6-14.8); WHITE BLOOD COUNT 11.2 K/UL (4.8-10.8)
[2019-06-28 17:16] LABS: ANION GAP 18 mmol/L (5-15); BLOOD UREA NITROGEN 99 mg/dL (7-18); CALCIUM 9.3 MG/DL (8.5-10.1); CARBON DIOXIDE 18 MMOL/L (21-32); CHLORIDE 136 MMOL/L (98-107); CREATININE 1.6 MG/DL (0.55-1.30); POTASSIUM 5.2 MMOL/L (3.5-5.1)
[2019-06-28 17:24] LABS: SODIUM 171 MMOL/L (136-145)
--- NOTE | 2019-06-28 18:00 | NUR ---
NURSE NOTES: Called DR Storm regarding critical lab values Na 171, K 5.2, Hgb 7.5, was previously notified of 2 episodes of vaginal bleeding, does not appear rectally. Addendum: 06/28/19 at 1845 by LINDEN WELLS RN Awaiting call back
[2019-06-28] MEDS: Nitroglycerin Patch 0.4mg TDERMAL SCH (18:03)
[2019-06-28 20:00] VITALS: BP 130/51
[2019-06-28] MEDS: Levemir Flexpen SUBQ SCH (21:00)
[2019-06-28] MEDS: Pantoprazole Inj IVP SCH (21:50)
[2019-06-29] VITALS: BP 127/66
[2019-06-29 04:00] VITALS: BP 100/78
--- NOTE | 2019-06-29 04:45 | Progress Note ---
DATE: 06/28/2019 CARDIOLOGY PROGRESS NOTE SUBJECTIVE: The patient's condition remains critical. Prognosis guarded. She remains with significantly elevated sodium and chloride levels and elevated troponin levels amongst other abnormalities in her blood. She is withdrawn and lethargic. She remains on church organist, which reveals sinus rhythm and atrial ectopics. OBJECTIVE: VITAL SIGNS: Blood pressure 138/67, heart rate 78, respiratory rate 18. LUNGS: Bilateral breath sounds. No wheezing. CARDIAC: Regular rhythm and rate. Normal S1, S2. ABDOMEN: Soft. EXTREMITIES: No edema. SKIN: G-tube site intact. LABORATORY DATA: Urine culture positive for gram-negative bacillus. Sodium 171, potassium 5.2, chloride 136, bicarb 18, BUN 99, creatinine 1.6. Troponin 0.144. Liver function studies slightly elevated. Albumin 2.5. White count 11, hemoglobin 7.5. IMPRESSION: 1. Acute myocardial ischemia and possible fpx-AF-egrwqrwnx infarction. 2. Significant anemia. 3. Dehydration. 4. Hypernatremia. 5. Hyperchloremia. 6. Urinary tract infection. 7. Sepsis. 8. Toxic and metabolic encephalopathies. 9. Severe protein-calorie malnutrition. 10. Acute renal failure. 11. Metabolic acidosis. PLAN: 1. Hypotonic IV fluids. 2. Antimicrobials. 3. Antiplatelet therapy with aspirin is now discontinued due to severe anemia and possible GI blood loss. 4. Topical nitrates. 5. Beta-blockade. 6. Insulin titration. 7. DVT prophylaxis. Ck Lazaro M.D. DR: Jose JOB#: [id number] CC:
[2019-06-29] MEDS: NovoLOG Insulin Flexpen SUBQ SCH ×4 (06:30→21:00)
--- NOTE | 2019-06-29 07:30 | NUR ---
NURSE NOTES: Received patient in bed asleep. With ongoing transfusion of PRBC on right hand g22. No SOB or acute distress. HOB elevated. Bed locked in lowest position. Call light within reach. Will continue plan of care.
[2019-06-29 08:00] VITALS: BP 138/56
[2019-06-29] MEDS: Pantoprazole Inj IVP SCH ×2 (08:52→21:54)
--- NOTE | 2019-06-29 11:00 | NUR ---
NURSE NOTES: IV line leaking, Dr Storm aware. Patient hard stick, Dr Storm with orders to put PICC line. Noted and carried out. Consent obtained by charge nurse from family member.
[2019-06-29 12:00] VITALS: BP 129/61
[2019-06-29] MEDS ORDERED: Lidocaine 1% Plain 30 ml INJ PRN (12:00)
[2019-06-29] MEDS ORDERED: Heparin1,000 units/500ml Premix(Conc:2 units/ml) IV PRN (12:00)
--- NOTE | 2019-06-29 15:09 | NUR ---
CASE MANAGEMENT:REVIEW 06/29/19 SI: SEPSIS D/T BACTEREMIA AND UTI. AMI COVID 19 PENDING 98.6 80 19 129/61 96% ON RA IS: IV ZOSYN Q8HRS IV PROTONIX Q12 IVF@100/HR LOPRESSOR PO Q12 NTG PATCH Q24 : TELEMETRY STATUS DCP: FROM [facility] PLAN: CONTINUE IV ANTIBIOTICS F/U ON PENDING COVID 19 RESULTS
--- NOTE | 2019-06-29 15:25 | NUR ---
NURSE NOTES:WOUND CARE NOTES:pt presented on admission with Sacral DTPI. Base of wound is maroon and purple with multiple open areas within wound bed. Open wound at apex is thomas with 50% slough. Small amt serous exudate noted. Borders are adherent to base of wound. DTPI R heel.Base of wound is fluctuant, purple with maroon borders. Periwound is callused and dry. Tx.Plan: Cleanse Sacral wound with Saline. Apply Therahoney. to wounds buttocks. Apply Moisture Barrier Paste periwound. Cover with Optifoam drsg. Change every 3 days and prn. Apply Cavilon Skin Barrier to heels. Cover with Optifoam drsg. Change every 7 days and prn. Reposition at least every 2hours or as tolerated. Off-load heels with pillow.
--- NOTE | 2019-06-29 15:53 | General Progress Note ---
Assessment/Plan Problem List: (1) Vaginal bleeding ICD Codes: N93.9 - Abnormal uterine and vaginal bleeding, unspecified SNOMED: 762301580 (2) Hypernatremia ICD Codes: E87.0 - Hyperosmolality and hypernatremia SNOMED: 797928867 (3) Acute myocardial ischemia ICD Codes: I24.9 - Acute ischemic heart disease, unspecified SNOMED: 332799068 (4) Dehydration ICD Codes: E86.0 - Dehydration SNOMED: 27881408 (5) JEANETH (acute kidney injury) ICD Codes: N17.9 - Acute kidney failure, unspecified SNOMED: 5072794, 24955128 (6) Acute encephalopathy ICD Codes: G93.40 - Encephalopathy, unspecified SNOMED: 94621932, 751086336 (7) Sepsis ICD Codes: A41.9 - Sepsis, unspecified organism SNOMED: 04109382, 770388967 Qualifiers: Qualified Codes: A41.9 - Sepsis, unspecified organism (8) Hyperglycemia ICD Codes: R73.9 - Hyperglycemia, unspecified SNOMED: 60864689, 877931903 (9) Hyperkalemia, diminished renal excretion ICD Codes: E87.5 - Hyperkalemia SNOMED: 74802188, 565429842 (10) UTI (urinary tract infection) ICD Codes: N39.0 - Urinary tract infection, site not specified SNOMED: 75794606, 227981473 Qualifiers: Qualified Codes: N39.0 - Urinary tract infection, site not specified (11) Anemia due to blood loss, acute ICD Codes: D62 - Acute posthemorrhagic anemia SNOMED: 819278460 Assessment/Plan: iv vnaco zosyn, transfused, vaginal vs gi bleed and loovenox stopped, adjust iv and insulin Subjective ROS Limited/Unobtainable: Yes Allergies: Coded Allergies: No Known Allergies (Unverified , 03/20/18) Objective Last 24 Hour Vital Signs Date Time Temp Pulse Resp B/P (MAP) Pulse Ox O2 Delivery O2 Flow Rate FiO2 06/29/19 12:00 73 06/29/19 12:00 98.6 80 19 129/61 (83) 96 06/29/19 09:00 Room Air 06/29/19 08:52 81 138/56 4/24/20 08:00 98.8 81 19 138/56 (83) 98 06/29/19 08:00 77 06/29/19 04:00 97.9 80 20 100/78 (85) 97 06/29/19 04:00 75 06/29/19 00:00 68 06/29/19 00:00 98.9 70 21 127/66 (86) 96 06/28/19 21:56 90 130/51 06/28/19 21:00 Room Air 06/28/19 20:00 96.8 78 18 130/51 (77) 97 06/28/19 20:00 85 06/28/19 18:03 138/67 06/28/19 16:00 86 06/28/19 16:00 96.8 78 18 138/67 (90) 97 Laboratory Tests 06/28/19 16:15: White Blood Count 11.2H, Red Blood Count 3.22L, Hemoglobin 7.5L, Hematocrit 26.2L, Mean Corpuscular Volume 82, Mean Corpuscular Hemoglobin 23.3L, Mean Corpuscular Hemoglobin Concent 28.6L, Red Cell Distribution Width 15.4H, Platelet Count 173, Mean Platelet Volume 11.9H, Neutrophils (%) (Auto) , Lymphocytes (%) (Auto) , Monocytes (%) (Auto) , Eosinophils (%) (Auto) , Basophils (%) (Auto) , Differential Total Cells Counted 100, Neutrophils % ( Manual) 57, Lymphocytes % (Manual) 36, Monocytes % (Manual) 1, Eosinophils % ( Manual) 1, Basophils % (Manual) 0, Band Neutrophils 5, Platelet Estimate Adequate, Platelet Morphology Normal, Hypochromasia 1+, Anisocytosis 1+, Sodium Level 171*H, Potassium Level 5.2H, Chloride Level 136H, Carbon Dioxide Level 18L , Anion Gap 18H, Blood Urea Nitrogen 99H, Creatinine 1.6H, Estimat Glomerular Filtration Rate 37.7, Glucose Level 242H, Calcium Level 9.3 Height (Feet): 5 Height (Inches): 5.00 Weight (Pounds): 160 General Appearance: lethargic, confused EENT: normal ENT inspection Neck: non-tender Cardiovascular: normal rate Respiratory/Chest: lungs clear Abdomen: non tender Edema: no edema noted Arm (L), no edema noted Arm (R), no edema noted Leg (L), no edema noted Leg (R), no edema noted Pedal (L), no edema noted Pedal (R), no edema noted Generalized Neurologic: can filling room sweeper II-XII grossly normal, disoriented Kristopher Storm MD Jun 29, 2019 15:53
[2019-06-29 16:00] VITALS: BP 131/68
[2019-06-29] MEDS: Nitroglycerin Patch 0.4mg TDERMAL SCH (17:00)
--- NOTE | 2019-06-29 18:35 | NUR ---
RADIOLOGY NOTE: LEFT UPPER EXTREMITY PICC LINE PLACED BY DR. ASHLIE BLOCK AT 1822 HRS. FA
--- NOTE | 2019-06-29 18:48 | Brief Operative Note ---
Immediate Post Operative Note Operative Note Pre-op Diagnosis: needs IV access Procedure: PICC Post-op Diagnosis: same as pre-op Surgeon: Andrez Perez Anesthesia: local Specimen: none Complications: none Fluids: none Implant(s) used?: No Moise Perez MD Jun 29, 2019 18:48
--- NOTE | 2019-06-29 18:54 | NUR ---
NURSE NOTES: PICC line placed on left upper arm. OK to use as ordered.
--- NOTE | 2019-06-29 19:11 | Diagnostic Imaging Report ---
Indications: Needs long-term IV access Technique: Procedure performed at bedside. Procedural timeout performed. Ultrasound confirms patent compressible right basilic vein. Total sterile technique, including sterile probe cover and sterile gel, sterile gloves, hand hygiene, hat, mask,, sterile gown, large sterile drape, and preparation with 2% chlorhexidine utilized. Local anesthesia with 1% lidocaine. Under real-time ultrasound guidance, puncture basilic vein using 21-gauge needle, passage 0.018 guidewire, exchange for 4 [place] peel-away sheath. 4 [place] Bard dual-lumen power PICC cut to 36 cm. It was inserted through the peel-away sheath. Peel-away sheath and guidewire removed. Catheter fixed to the skin. Both catheter ports aspirated and flushed. Patient tolerated procedure well, without immediate complication. Followup chest x-ray obtained, documents catheter tip position at the level of the right subclavian vein Impression: Successful bedside placement of right arm PICC under sonographic guidance, as described above. Note that this is suitable for use as a midline only due to tip ending up in the subclavian vein, short of the expected level. Patient's nurse was notified of this
--- NOTE | 2019-06-29 19:24 | NUR ---
HAND-OFF: Report given to Norberto.
--- NOTE | 2019-06-29 19:30 | NUR ---
Verbal report received from Sana CARDOZA
--- NOTE | 2019-06-29 19:45 | NUR ---
NURSE NOTES: Pt received from Sana, RN alert and oriented to name only, opens eyes to sound and touch. Left upper arm midline noted, flushing well asymptomatic and patent. Bed in lowest position, call light and belongings within reach.
[2019-06-29 20:00] VITALS: BP 143/58
[2019-06-29] MEDS: Dyna-Hex 2% Top Sol 2oz TOPIC SCH (21:54)
[2019-06-29] MEDS: Levemir Flexpen SUBQ SCH (22:02)
--- NOTE | 2019-06-29 22:02 | Infectious Diseases Prog Note ---
Assessment/Plan Assessment/Plan Full consult dictated; staph bacteremia klebsiella uti sepsis rule out covid-19 infection vancomycin and zosyn f/u cultures and labs thank you Subjective Allergies: Coded Allergies: No Known Allergies (Unverified , 03/20/18) Objective Vital Signs Last 24 Hour Vital Signs Date Time Temp Pulse Resp B/P (MAP) Pulse Ox O2 Delivery O2 Flow Rate FiO2 06/29/19 17:00 131/68 06/29/19 16:00 97.8 88 20 131/68 (89) 97 06/29/19 16:00 84 06/29/19 12:00 73 06/29/19 12:00 98.6 80 19 129/61 (83) 96 06/29/19 09:00 Room Air 06/29/19 08:52 81 138/56 06/29/19 08:00 98.8 81 19 138/56 (83) 98 06/29/19 08:00 77 06/29/19 04:00 97.9 80 20 100/78 (85) 97 06/29/19 04:00 75 06/29/19 00:00 68 06/29/19 00:00 98.9 70 21 127/66 (86) 96 Height (Feet): 5 Height (Inches): 5.00 Weight (Pounds): 160 Microbiology Date/Time Source Procedure Growth Status 06/27/19 11:50 Blood Blood Culture - Preliminary Staphylococcus Species Resulted 06/27/19 11:50 Blood Blood Culture - Preliminary Staphylococcus Species Resulted 06/27/19 17:30 Nasal Nares MRSA Culture - Final NO METHICILLIN RESISTANT STAPH AUREUS... Complete 06/27/19 11:50 Nasal Nares - Final Complete 06/27/19 11:50 Nasal Nares - Final Complete 06/27/19 11:50 Urine,Clean Catch Urine Culture - Final Klebsiella Pneumoniae Complete 06/27/19 17:30 Rectum VRE Culture - Final NO VANCOMYCIN RESISTANT ENTEROCOCCUS ... Complete 06/27/19 17:30 Rectum Received Current Medications Medications (Trade) Dose Ordered Sig/Aldo Route PRN Reason Start Time Stop Time Status Last Admin Dose Admin Acetaminophen (Tylenol) 650 mg Q4H PRN RECTAL Mild Pain (Pain Scale 1-3) 06/27/19 16:00 07/27/19 15:59 Acetaminophen (Tylenol) 650 mg Q4H PRN RECTAL fever 06/27/19 16:00 07/27/19 15:59 Chlorhexidine Gluconate (Amy-Hex 2%) 1 applic DAILY@2000 TOPIC 06/29/19 20:00 09/27/19 19:59 Dextrose 1,000 ml @ 100 mls/hr Q10H IV 06/28/19 19:51 07/28/19 19:50 06/28/19 21:49 Dextrose (Dextrose 50%) 25 ml Q30M PRN IV Hypoglycemia 06/27/19 16:00 09/25/19 15:59 Dextrose (Dextrose 50%) 50 ml Q30M PRN IV Hypoglycemia 06/27/19 16:00 09/25/19 15:59 Heparin Sodium/ Sodium Chloride (Heparin 1000 units/500ml Premix) 1,000 unit ONCE PRN IV PICC LINE 06/29/19 12:00 07/01/19 11:59 Insulin Aspart (NovoLOG) BEFORE MEALS AND HS SUBQ 06/27/19 16:30 09/25/19 16:29 06/29/19 12:38 Insulin Detemir (Levemir) 25 units BEDTIME SUBQ 06/27/19 22:00 09/25/19 21:59 06/28/19 21:00 Lidocaine HCl (Xylocaine 1% 30ml) 30 ml ONCE PRN INJ PICC LINE 06/29/19 12:00 07/01/19 11:59 Metoprolol Tartrate (Lopressor) 25 mg Q12HR ORAL 06/27/19 21:00 09/25/19 20:59 06/29/19 08:52 Nitroglycerin (Ntg) 0.4 mg Q5M PRN SL Prn Chest Pain 06/27/19 16:00 07/27/19 15:59 Nitroglycerin (Ntg) 1 patch Q24H TDERMAL 06/27/19 17:00 07/27/19 16:59 06/29/19 17:00 Ondansetron HCl (Zofran) 4 mg Q6H PRN IVP Nausea & Vomiting 06/27/19 16:00 07/27/19 15:59 Pantoprazole (Protonix) 40 mg EVERY 12 HOURS IVP 06/28/19 21:00 07/28/19 20:59 06/29/19 08:52 Piperacillin Sod/ Tazobactam Sod 3.375 gm/Sodium Chloride 100 ml @ 25 mls/hr Q8HR IVPB 06/28/19 06:00 07/04/19 21:59 06/28/19 21:49 Polyethylene Glycol (Miralax) 17 gm DAILYPRN PRN ORAL Constipation 06/27/19 16:00 07/27/19 15:59 Vancomycin HCl (Vanco rx to dose) 1 ea DAILY PRN MISC Per rx protocol 06/28/19 12:15 07/28/19 12:14 Caio Shaffer MD Jun 29, 2019 22:02
[2019-06-30] VITALS: BP 144/68
[2019-06-30 04:00] VITALS: BP 146/69
[2019-06-30] MEDS: NovoLOG Insulin Flexpen SUBQ SCH ×4 (05:57→21:00)
--- NOTE | 2019-06-30 07:55 | NUR ---
HAND-OFF: Report given to NANI Hood.
--- NOTE | 2019-06-30 07:56 | NUR ---
NURSE NOTES: Received patient in bed asleep. No SOB or acute distress. Midline on right upper arm intact. Ferrara catheter intact. HOB elevated. Bed locked in lowest position. Call light within reach. Will continue plan of care.
[2019-06-30 08:00] VITALS: BP 138/55
--- NOTE | 2019-06-30 08:30 | Consultation ---
DATE OF CONSULTATION: 06/29/2019 INFECTIOUS DISEASE CONSULTATION CONSULTING PHYSICIAN: Caio Shaffer M.D. ATTENDING PHYSICIAN: Kristopher Storm M.D. REFERRING PHYSICIAN: Kristopher Storm M.D. REASON FOR CONSULTATION: Staph bacteremia, Klebsiella UTI, sepsis, leukocytosis, rule out COVID-19 virus infection. CHIEF COMPLAINT: Patient's chief complaint coming in to the hospital is altered mental status, hyperglycemia. HISTORY OF PRESENT ILLNESS: This is a 78-year-old female, who comes to [facility]. Patient was noted to have altered mental status and elevated white count and septic. Workup shows that she has a Staph bacteremia. Echo also will be ordered. She also has a Klebsiella complicated UTI. Patient is being ruled out for COVID-19 virus infection. Chest x-ray is negative. Infectious Disease consultation is requested for antibiotic management in this patient with Staph bacteremia, Klebsiella UTI, and sepsis. Patient currently is on Zosyn and Vanco. MAR was noted. Orders were noted. Notes and records were reviewed. Patient really cannot add to this history. REVIEW OF SYSTEMS: CONSTITUTIONAL: Patient has a new PICC line. She has a Ferrara. Generalized fatigue, weakness. Opens eyes. She currently has no fevers or pressors. HEAD AND NECK: No head pain or neck pain. CARDIAC: No obvious chest pain. GASTROINTESTINAL: No nausea, vomiting, or diarrhea. GENITOURINARY: She has a Ferrara. PULMONARY: She has no significant congestion or shortness of breath. Mild secretions. SKIN: No rash or itching. Wounds were reviewed. Skin was reviewed. EXTREMITIES: No pain. NEUROLOGIC: No seizures. Generalized fatigue and weakness. PAST MEDICAL HISTORY: Patient has a past medical history of diabetes, renal failure, hyperkalemia, weakness. Other past medical history includes the following. She has a history of hypertension. She has history of wounds. She has history of aphasia, cerebral infarction, history of hemiplegia, dysphagia, aspiration risk, wounds, muscle wasting, kidney failure, iron deficiency anemia, hyperlipidemia. ALLERGIES: She has no known drug allergies. No antibiotic allergies. SOCIAL HISTORY: Negative for smoking, alcohol, or drug abuse. FAMILY HISTORY: Noncontributory. Negative for tuberculosis or cancer. MEDICATIONS: Upon reviewing the MAR, she is on following medications. She is on chlorhexidine. She is on heparin, pantoprazole, Vanco, Zosyn, metoprolol, nitroglycerin, acetaminophen, polyethylene glycol, Zofran, IV fluids. Outside medications were noted and reconciliated. Antibiotics, Vanco and Zosyn. PHYSICAL EXAMINATION: VITAL SIGNS: Temperature 97.8, pulse rate is 80, respiratory rate 20, blood pressure 131/68, saturating 97% on room air. Pulse rate has been as high as 97. GENERAL: Weak, responsive. HEAD AND NECK: Oral exam, no thrush. Eye exam, no icterus. Normocephalic. Neck is supple. No JVD. HEART: Regular. No gallop or murmur. No friction rub. ABDOMEN: Soft. Positive bowel sounds. Nontender. LUNGS: Fairly clear bilaterally. No rhonchi or rales. SKIN: No rash. Wounds were noted and reviewed, not acutely infected. MUSCULOSKELETAL: No effusion. Legs are without cellulitis. PERIPHERAL VASCULAR: No cyanosis or gangrene. GENITOURINARY: She has a Ferrara. Urine is cloudy. LINE SITES: Without phlebitis. NEUROLOGIC: Generalized weakness, responsive. LABORATORY AND DIAGNOSTIC DATA: Laboratory data sodium 171, creatinine 1.6. White count 13.9, hemoglobin 8.4. Urinalysis had 3+ leukocyte esterase, too many to count white blood cells. Cultures, blood cultures with multiple bottles I think 3/4 bottles of Staph species. Urine culture with Klebsiella. pansensitive. COVID-19 virus testing is pending. IMAGING STUDIES: Chest x-ray showed no acute disease. ASSESSMENT AND PLAN: 1. Patient has a Staph bacteremia, Klebsiella UTI, sepsis, leukocytosis, SIRS criteria. Rule out COVID-19 virus infection. Chest x-ray is negative. Patient's most likely source of the sepsis is Staph bacteremia and Klebsiella UTI with sepsis. Continue Vanco and Zosyn for now. Check followup chest x-ray. Check final blood culture results. Check echo. Continue treatment for Klebsiella UTI, Staph bacteremia, sepsis, and leukocytosis. Await COVID-19 virus testing also even though I have a low suspicion for it. Continue Vanco and Zosyn for Staph bacteremia, sepsis, Klebsiella UTI, leukocytosis. Check cultures, laboratories, chest x-ray. We will also check echo. 2. COVID-19 virus isolation. Check COVID-19 virus infection testing. 3. Diabetes. 4. Hypertension. 5. Blood sugar and blood pressure treatment per primary care team for diabetes and hypertension. 6. CVA. 7. Weakness. 8. Aspiration risk. 9. Hemiparesis. 10. Wound care protocol. 11. Hyperlipidemia. 12. Anemia. 13. Cerebral infarction. 14. Dysphagia. 15. Continue treatment per primary consults. 16. No known drug allergies. 17. Social history negative. 18. Family history noncontributory. 19. MAR was noted. 20. Case discussed with RN. Caio Shaffer M.D. DR: MARILU JOB#: [id number] CC:
--- NOTE | 2019-06-30 08:45 | Progress Note ---
DATE: 06/29/2019 CARDIOLOGY PROGRESS NOTE SUBJECTIVE: Patient is status post PICC line placement. No complications noted. Some bleeding noted on her panties and Lovenox has been stopped. It is unclear whether the source is GI or vaginal. PHYSICAL EXAMINATION: VITAL SIGNS: Afebrile, blood pressure 129/61, heart rate 80, respirations 19. LUNGS: Clear. CARDIAC: Regular. Normal S1, S2. ABDOMEN: Soft. EXTREMITIES: No edema. LABORATORY DATA: White count 11, hemoglobin 7.5. Sodium 171, potassium 5.2, BUN 99, creatinine 1.6, bicarb 18. Troponin 0.144. Urine culture is positive for Klebsiella. Blood cultures are positive for Staph. IMPRESSION: 1. Staph bacteremia. 2. Klebsiella UTI. 3. Sepsis. 4. Severe dehydration. 5. Hypernatremia. 6. Hyperchloremia. 7. Acute renal failure. 8. Probable underlying chronic kidney disease. 9. Hypertensive heart disease. 10. Acute myocardial ischemia. 11. Hypoperfusion. 12. Hypovolemia. 13. Toxic and metabolic encephalopathies. 14. Remains critical and guarded. 15. Anemia. 16. Increased risk for endocarditis. PLAN: 1. Continue hypotonic IV fluids. 2. Antimicrobials. 3. Echocardiogram. 4. Packed red blood cell transfusion. Ck Lazaro M.D. DR: BEHZAD JOB#: [id number] CC:
[2019-06-30] MEDS: Pantoprazole Inj IVP SCH ×2 (09:39→21:00)
[2019-06-30] MEDS ORDERED: Vancomycin 1 GM in D5W 275 ML IVPB SCH (11:15)
[2019-06-30 12:00] VITALS: BP 144/68
--- NOTE | 2019-06-30 13:02 | NUR ---
RADIOLOGY DEPT., LATE ENTRY, 06/28, CHEST X-RAY PERFORMED POST LINE PLACEMENT -P.DYE
[2019-06-30 16:00] VITALS: BP 151/102
[2019-06-30] MEDS: Nitroglycerin Patch 0.4mg TDERMAL SCH (16:31)
--- NOTE | 2019-06-30 17:27 | Nephrology Progress Note ---
Assessment/Plan Problem List: (1) Vaginal bleeding (2) Hypernatremia (3) Acute myocardial ischemia (4) Dehydration (5) JEANETH (acute kidney injury) (6) Acute encephalopathy (7) Sepsis (8) Hyperglycemia (9) Hyperkalemia, diminished renal excretion (10) UTI (urinary tract infection) (11) Anemia due to blood loss, acute Plan iv adjusted, titrate inulin Subjective ROS Limited/Unobtainable: Yes Objective Objective Last 24 Hour Vital Signs Date Time Temp Pulse Resp B/P (MAP) Pulse Ox O2 Delivery O2 Flow Rate FiO2 06/30/19 16:31 151/102 06/30/19 16:00 97.9 85 20 151/102 (118) 99 06/30/19 12:00 97.8 78 22 144/68 (93) 96 06/30/19 12:00 67 06/30/19 09:39 79 138/55 06/30/19 09:00 Room Air 06/30/19 08:00 97.1 79 22 138/55 (82) 100 06/30/19 08:00 74 06/30/19 04:00 74 06/30/19 04:00 98.1 84 17 146/69 (94) 94 06/30/19 00:00 98.8 86 19 144/68 (93) 97 06/30/19 00:00 75 06/29/19 21:52 85 121/68 06/29/19 21:00 Room Air 06/29/19 20:00 98.1 90 18 143/58 (86) 96 06/29/19 20:00 91 Intake and Output 06/29/19 06/30/19 19:00 07:00 Intake Total 120 ml 375 ml Output Total 1200 ml 1100 ml Balance -1080 ml -725 ml Intake Oral 120 ml Free Water 200 ml IV Total 175 ml Output Urine Total 1200 ml 1100 ml # Voids 3 # Bowel Movements 1 1 Laboratory Tests 06/30/19 06:15: Random Vancomycin Level 12.1 Height (Feet): 5 Height (Inches): 5.00 Weight (Pounds): 160 General Appearance: lethargic, confused EENT: normal ENT inspection Neck: normal alignment Cardiovascular: normal rate Respiratory/Chest: lungs clear, normal breath sounds Abdomen: soft Extremities: no edema Neurologic: veneer stapler II-XII grossly normal Kristopher Storm MD Jun 30, 2019 17:27
--- NOTE | 2019-06-30 19:46 | NUR ---
HAND-OFF: Report given to Britt CARDOZA.
[2019-06-30 20:00] VITALS: BP 158/67
[2019-06-30] MEDS: Dyna-Hex 2% Top Sol 2oz TOPIC SCH (20:00)
[2019-06-30] MEDS: Levemir Flexpen SUBQ SCH (21:00)
[2019-07-01] VITALS: BP 147/68
[2019-07-01 04:00] VITALS: BP 140/72
--- NOTE | 2019-07-01 05:15 | NUR ---
Stool X1 Dark liquid.
[2019-07-01] MEDS: NovoLOG Insulin Flexpen SUBQ SCH ×4 (06:30→23:45)
--- NOTE | 2019-07-01 07:30 | NUR ---
Verbal report to Min RN.
--- NOTE | 2019-07-01 07:30 | NUR ---
NURSE NOTES: Received patient from Britt CARDOZA. pT in bed asleep. With ongoing transfusion of PRBC on right hand g22. No SOB or acute distress. HOB elevated. Bed locked in lowest position. Call light within reach. Will continue plan of care. Addendum: 07/01/19 at 1946 by Emily Diaz RN wrong patient
[2019-07-01 08:00] VITALS: BP 157/75
[2019-07-01] MEDS: Pantoprazole Inj IVP SCH ×2 (08:51→23:30)
[2019-07-01 10:39] LABS: ANION GAP 15 mmol/L (5-15); BLOOD UREA NITROGEN 46 mg/dL (7-18); CALCIUM 9.4 MG/DL (8.5-10.1); CARBON DIOXIDE 21 MMOL/L (21-32); CHLORIDE 132 MMOL/L (98-107); CREATININE 1.3 MG/DL (0.55-1.30); POTASSIUM 4.1 MMOL/L (3.5-5.1)
[2019-07-01 10:55] LABS: SODIUM 167 MMOL/L (136-145)
[2019-07-01 12:00] VITALS: BP 144/58
--- NOTE | 2019-07-01 14:53 | General Progress Note ---
Assessment/Plan Problem List: (1) Vaginal bleeding ICD Codes: N93.9 - Abnormal uterine and vaginal bleeding, unspecified SNOMED: 079219196 (2) Hypernatremia ICD Codes: E87.0 - Hyperosmolality and hypernatremia SNOMED: 518891834 (3) Acute myocardial ischemia ICD Codes: I24.9 - Acute ischemic heart disease, unspecified SNOMED: 790445642 (4) Dehydration ICD Codes: E86.0 - Dehydration SNOMED: 61373624 (5) JEANETH (acute kidney injury) ICD Codes: N17.9 - Acute kidney failure, unspecified SNOMED: 7823743, 38750117 (6) Acute encephalopathy ICD Codes: G93.40 - Encephalopathy, unspecified SNOMED: 58285605, 573467718 (7) Sepsis ICD Codes: A41.9 - Sepsis, unspecified organism SNOMED: 81269321, 242453895 Qualifiers: Qualified Codes: A41.9 - Sepsis, unspecified organism (8) Hyperglycemia ICD Codes: R73.9 - Hyperglycemia, unspecified SNOMED: 17488175, 199676455 (9) Hyperkalemia, diminished renal excretion ICD Codes: E87.5 - Hyperkalemia SNOMED: 32229237, 547055598 (10) UTI (urinary tract infection) ICD Codes: N39.0 - Urinary tract infection, site not specified SNOMED: 86380391, 513069225 Qualifiers: Qualified Codes: N39.0 - Urinary tract infection, site not specified (11) Anemia due to blood loss, acute ICD Codes: D62 - Acute posthemorrhagic anemia SNOMED: 713006391 Assessment/Plan: iv vnaco zosyn, transfused, vaginal vs gi bleed and lovenox stopped, adjust iv and insulin Subjective ROS Limited/Unobtainable: Yes Allergies: Coded Allergies: No Known Allergies (Unverified , 03/20/18) Objective Last 24 Hour Vital Signs Date Time Temp Pulse Resp B/P (MAP) Pulse Ox O2 Delivery O2 Flow Rate FiO2 07/01/19 12:00 66 07/01/19 09:00 Room Air 07/01/19 08:52 84 157/75 07/01/19 08:00 82 07/01/19 08:00 97.9 84 18 157/75 (102) 98 07/01/19 04:00 98.8 77 18 140/72 (94) 97 07/01/19 04:00 72 07/01/19 00:00 99.0 81 18 147/68 (94) 96 07/01/19 00:00 79 06/30/19 21:00 Room Air 06/30/19 21:00 89 158/67 06/30/19 20:00 98.6 89 18 158/67 (97) 97 06/30/19 20:00 71 06/30/19 16:31 151/102 06/30/19 16:00 97.9 85 20 151/102 (118) 99 06/30/19 16:00 100 Intake and Output 06/30/19 07/01/19 19:00 07:00 Intake Total 1000 ml Output Total 400 ml 500 ml Balance -400 ml 500 ml IV Total 1000 ml Output Urine Total 400 ml 400 ml Stool Total 100 ml # Voids 1 # Bowel Movements 1 2 Laboratory Tests 07/01/19 09:35: Sodium Level 167*H, Potassium Level 4.1, Chloride Level 132H, Carbon Dioxide Level 21, Anion Gap 15, Blood Urea Nitrogen 46H, Creatinine 1.3, Estimat Glomerular Filtration Rate 47.9, Glucose Level 168H, Calcium Level 9.4 Height (Feet): 5 Height (Inches): 5.00 Weight (Pounds): 160 General Appearance: confused EENT: normal ENT inspection Neck: normal alignment Cardiovascular: normal rate, regular rhythm Respiratory/Chest: lungs clear, normal breath sounds Edema: no edema noted Arm (L), no edema noted Arm (R), no edema noted Leg (L), no edema noted Leg (R), no edema noted Pedal (L), no edema noted Pedal (R), no edema noted Generalized Neurologic: disoriented Kristopher Storm MD Jul 01, 2019 14:53
[2019-07-01 15:32] VITALS: BP 138/55
[2019-07-01] MEDS ORDERED: 1/2 NS 1000ml IV ONE (15:42)
[2019-07-01] MEDS ORDERED: Tubing IV Secondary IV ONE (15:42)
[2019-07-01] MEDS: Nitroglycerin Patch 0.4mg TDERMAL SCH (17:08)
--- NOTE | 2019-07-01 19:30 | NUR ---
HANDOFF REPORT RECEIVED FROM MIN RN/
--- NOTE | 2019-07-01 19:44 | NUR ---
NURSE NOTES: Received report from Britt CARDOZA. Pt IN BE awake and disoriented. Side railsx2 up for safety. p200 mattress. IV in GRIFFIN Midline with 2 lumens. Will continue to plan of care.
[2019-07-01 20:00] VITALS: BP 137/90
--- NOTE | 2019-07-01 20:17 | Infectious Diseases Prog Note ---
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 COVID-19 virus testing - negative 3. Diabetes. 4. Hypertension. 5. Blood sugar and blood pressure treatment per primary care team for diabetes and hypertension. 6. CVA. 7. Weakness. 8. Aspiration risk. 9. Hemiparesis. 10. Wound care protocol. 11. Hyperlipidemia. 12. Anemia. 13. Cerebral infarction. 14. Dysphagia. 15. Continue treatment per primary consults. 16. No known drug allergies. 17. Social history negative. 18. Family history noncontributory. 19. MAR was noted. 20. Case discussed with RN. Subjective Constitutional: Reports: fatigue, other - lethargic, weak, nad; Denies: fever HEENT: Denies: congestion Respiratory: Denies: shortness of breath Cardiovascular: Denies: chest pain Gastrointestinal/Abdominal: Denies: nausea, vomiting, diarrhea Genitourinary: Reports: other - + pack Neurologic: Denies: headache Psychiatric: Denies: depression Skin: Denies: rash Hematologic: Denies: bleeding Musculoskeletal: Denies: pain Allergies: Coded Allergies: No Known Allergies (Unverified , 03/20/18) Objective Vital Signs Last 24 Hour Vital Signs Date Time Temp Pulse Resp B/P (MAP) Pulse Ox O2 Delivery O2 Flow Rate FiO2 07/01/19 17:08 138/55 07/01/19 16:00 76 07/01/19 15:32 97.7 77 18 138/55 (82) 96 07/01/19 12:00 66 07/01/19 12:00 98.8 92 18 144/58 (86) 99 07/01/19 09:00 Room Air 07/01/19 08:52 84 157/75 07/01/19 08:00 82 07/01/19 08:00 97.9 84 18 157/75 (102) 98 07/01/19 04:00 98.8 77 18 140/72 (94) 97 07/01/19 04:00 72 07/01/19 00:00 99.0 81 18 147/68 (94) 96 07/01/19 00:00 79 06/30/19 21:00 Room Air 06/30/19 21:00 89 158/67 Height (Feet): 5 Height (Inches): 5.00 Weight (Pounds): 160 General Appearance: no acute distress HEENT: normocephalic, atraumatic, anicteric, mucous membranes moist Respiratory/Chest: lungs clear, normal breath sounds, no respiratory distress, no accessory muscle use Cardiovascular: normal rate, regular rhythm, no gallop/murmur, no JVD Abdomen: normal bowel sounds, soft, non tender, no organomegaly, non distended Genitourinary: other - + pack - urine slt cloudy Extremities: no cyanosis Skin: no rash Neurologic/Psychiatric: packing attendant II-XII 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 Heart size is normal. There are degenerative changes of the thoracic spine Impression: No acute process Microbiology Date/Time Source Procedure Growth Status 06/27/19 11:50 Blood Blood Culture - Final Staphylococcus Epidermidis Complete 06/27/19 19:00 Nasopharynx Coronavirus COVID-19 PCR (ATUL) - Final Complete 06/27/19 11:50 Urine,Clean Catch Urine Culture - Final Klebsiella Pneumoniae Complete 06/27/19 17:30 Rectum VRE Culture - Final NO VANCOMYCIN RESISTANT ENTEROCOCCUS ... Complete Microbiology Date/Time Source Procedure Growth Status 06/27/19 11:50 Blood Blood Culture - Final Staphylococcus Epidermidis Complete 06/27/19 19:00 Nasopharynx Coronavirus COVID-19 PCR (ATUL) - Final Complete 06/27/19 11:50 Urine,Clean Catch Urine Culture - Final Klebsiella Pneumoniae Complete 06/27/19 17:30 Rectum VRE Culture - Final NO VANCOMYCIN RESISTANT ENTEROCOCCUS ... Complete Laboratory Tests Test 07/01/19 09:35 Sodium Level 167 MMOL/L (136-145) *H Potassium Level 4.1 MMOL/L (3.5-5.1) Chloride Level 132 MMOL/L (98-107) H Carbon Dioxide Level 21 MMOL/L (21-32) Anion Gap 15 mmol/L (5-15) Blood Urea Nitrogen 46 mg/dL (7-18) H Creatinine 1.3 MG/DL (0.55-1.30) Estimat Glomerular Filtration Rate 47.9 mL/min (>60) Glucose Level 168 MG/DL (74-106) H Calcium Level 9.4 MG/DL (8.5-10.1) wbc - 11.2 hgb - 7.5 Current Medications Medications (Trade) Dose Ordered Sig/Aldo Route PRN Reason Start Time Stop Time Status Last Admin Dose Admin Acetaminophen (Tylenol) 650 mg Q4H PRN RECTAL Mild Pain (Pain Scale 1-3) 06/27/19 16:00 07/27/19 15:59 Acetaminophen (Tylenol) 650 mg Q4H PRN RECTAL fever 06/27/19 16:00 07/27/19 15:59 Chlorhexidine Gluconate (Amy-Hex 2%) 1 applic DAILY@2000 TOPIC 06/29/19 20:00 09/27/19 19:59 06/30/19 20:00 Dextrose 1,000 ml @ 100 mls/hr Q10H IV 06/28/19 19:51 07/28/19 19:50 07/01/19 17:20 Dextrose (Dextrose 50%) 25 ml Q30M PRN IV Hypoglycemia 06/27/19 16:00 09/25/19 15:59 Dextrose (Dextrose 50%) 50 ml Q30M PRN IV Hypoglycemia 06/27/19 16:00 09/25/19 15:59 Insulin Aspart (NovoLOG) Q6HR SUBQ 07/01/19 18:00 09/25/19 16:29 07/01/19 17:20 Insulin Detemir (Levemir) 30 units BEDTIME SUBQ 06/30/19 21:00 09/28/19 20:59 06/30/19 21:00 Metoprolol Tartrate (Lopressor) 25 mg Q12HR ORAL 06/27/19 21:00 09/25/19 20:59 07/01/19 08:52 Nitroglycerin (Ntg) 0.4 mg Q5M PRN SL Prn Chest Pain 06/27/19 16:00 07/27/19 15:59 Nitroglycerin (Ntg) 1 patch Q24H TDERMAL 06/27/19 17:00 07/27/19 16:59 07/01/19 17:08 Ondansetron HCl (Zofran) 4 mg Q6H PRN IVP Nausea & Vomiting 06/27/19 16:00 07/27/19 15:59 Pantoprazole (Protonix) 40 mg EVERY 12 HOURS IVP 06/28/19 21:00 07/28/19 20:59 07/01/19 08:51 Piperacillin Sod/ Tazobactam Sod 3.375 gm/Sodium Chloride 100 ml @ 25 mls/hr Q8HR IVPB 06/28/19 06:00 07/04/19 21:59 07/01/19 13:50 Polyethylene Glycol (Miralax) 17 gm DAILYPRN PRN ORAL Constipation 06/27/19 16:00 07/27/19 15:59 Vancomycin HCl (Vanco rx to dose) 1 ea DAILY PRN MISC Per rx protocol 06/28/19 12:15 07/28/19 12:14 Caio Shaffer MD Jul 01, 2019 20:17
[2019-07-01] MEDS: Levemir Flexpen SUBQ SCH (23:46)
[2019-07-01] MEDS: cefTRIAXone 1 GM in D5W 50 ML IVPB SCH (23:55)
[2019-07-02] VITALS: BP 125/48
[2019-07-02 04:00] VITALS: BP 129/65
--- NOTE | 2019-07-02 04:44 | Progress Note ---
DATE: 07/01/2019 CARDIOLOGY PROGRESS NOTE SUBJECTIVE: Blood pressure parameters improved. No chest pain or shortness of breath. She remains on IV fluids. Continues to have abnormal electrolytes. Improving glucose control noted however. PHYSICAL EXAMINATION: VITAL SIGNS: Blood pressure 138/55, pulse 76, respiratory rate 18, afebrile, oxygen saturation 96% on room air. LUNGS: Few rales. CARDIAC: Regular rhythm and rate. Normal S1, S2. A 1/6 systolic murmur at apex. ABDOMEN: Soft, and nontender. EXTREMITIES: No edema. LABORATORY AND DIAGNOSTIC DATA: Sodium 167, potassium 4.1, chloride 132, bicarb 21, BUN 46, creatinine 1.3. IMPRESSION: 1. Bacteremia, possible contaminant. 2. Positive risk for endocarditis. 3. Toxic encephalopathy. 4. Metabolic encephalopathy. 5. Severe dehydration. 6. Hyperchloremia and hypernatremia. 7. Acute on chronic renal failure, improved. 8. Type 2 diabetes mellitus, recovering. 9. Hypertensive heart disease with stabilizing blood pressure. 10. Acute myocardial ischemia and possible wal-DL-qpluggrwn myocardial infarction. 11. Possible gastrointestinal or gynecologic bleeding noted several days ago. PLAN: 1. Hypotonic IV fluid hydration. 2. Antimicrobials. 3. Await echocardiogram. 4. Hold anti-platelet therapy in view of bleeding recent bleeding. 5. Continue beta-adelia and advanced for optimal blood pressure control. 6. nitrates. 7. Hold angiotensin-converting enzyme inhibitor, pending stabilization of metabolic parameters. Ck Lazaro M.D. DR: Gamaliel JOB#: [id number] CC:
--- NOTE | 2019-07-02 04:44 | Progress Note ---
DATE: 06/30/2019 CARDIOLOGY PROGRESS NOTE SUBJECTIVE: The patient without any new complaints. No new bleeding noted. No shortness of breath. OBJECTIVE: VITAL SIGNS: Blood pressure 158/67, pulse 89, respirations 18. LUNGS: Clear. CARDIAC: Regular rhythm and rate. Normal S1 and S2 with a fourth heart sound and 1/6 systolic murmur at apex. ABDOMEN: Soft. EXTREMITIES: No edema. LABORATORY DATA: The monitored rhythm is sinus with rare atrial ectopics. Echocardiogram is pending. Blood cultures, Staph epi. IMPRESSIONS: 1. Severe dehydration. 2. Hypernatremia. 3. Hyperkalemia. 4. Hyperchloremia. 5. Acute renal failure. 6. Diabetes mellitus, uncontrolled. 7. Myocardial ischemia and possible infarction. 8. Remains critical and guarded. PLAN: 1. Hypotonic IV fluids. 2. Insulin titration. 3. Await echocardiogram. 4. Trend troponin levels. 5. Maintain nitrates and beta-adelia therapy. 6. Hold aspirin in view of recent bleeding. Ck Lazaro M.D. DR: FERNANDO JOB#: [id number] CC:
[2019-07-02] MEDS: NovoLOG Insulin Flexpen SUBQ SCH ×3 (06:44→17:21)
[2019-07-02 07:17] LABS: BASOPHILS % (AUTO) 0.4 % (0.0-2.0); EOSINOPHILS % (AUTO) 2.2 % (0.0-3.0); HEMOGLOBIN 10.2 G/DL (12.0-16.0); LYMPHOCYTES % (AUTO) 27.5 % (20.0-45.0); MEAN CORPUSCULAR VOLUME 80 FL (80-99); MONOCYTES % (AUTO) 4.3 % (1.0-10.0); NEUTROPHILS % (AUTO) 65.6 % (45.0-75.0); PLATELET COUNT 146 K/UL (150-450); RED BLOOD COUNT 4.01 M/UL (4.20-5.40); WHITE BLOOD COUNT 8.5 K/UL (4.8-10.8)
[2019-07-02 07:35] LABS: ANION GAP 15 mmol/L (5-15); BLOOD UREA NITROGEN 34 mg/dL (7-18); CALCIUM 8.8 MG/DL (8.5-10.1); CARBON DIOXIDE 20 MMOL/L (21-32); CHLORIDE 125 MMOL/L (98-107); CREATININE 1.2 MG/DL (0.55-1.30); POTASSIUM 3.9 MMOL/L (3.5-5.1); SODIUM 159 MMOL/L (136-145)
--- NOTE | 2019-07-02 07:56 | NUR ---
NURSE NOTES: pt sleeping in bed. Pt on monitor worker no signs of cardiac or respiratory distress. pt on Gtube feeding at 40ml/hr. Bed in lowest position, and locked. Call light within reach, be side rails up for safety. Will continue to monitor pt.
[2019-07-02 08:15] VITALS: BP 151/71
[2019-07-02] MEDS: Metoprolol Tartrate 50mg tab ORAL SCH ×2 (10:21→21:20)
[2019-07-02] MEDS: Pantoprazole Inj IVP SCH ×2 (10:22→21:20)
[2019-07-02] MEDS: Vancomycin 750mg/NS 275ml IVPB SCH ×2 (10:22)
--- NOTE | 2019-07-02 10:58 | NUR ---
RD ASSESSMENT & RECOMMENDATIONS SEE CARE ACTIVITY FOR COMPLETE ASSESSMENT DAILY ESTIMATED NEEDS: Needs based on Renal, DM, wound 48kg abw 28-33 kcals/kg 3970-4272 total kcals 1.25-1.5 g protein/kg 60-72 g total protein 25-30 mL/kg 6529-0952 total fluid mLs NUTRITION DIAGNOSIS: Increased kcal and pro needs r/t wound healing as evidenced by stage 3 sacral wound, pt is GT dep. CURRENT TF:Glucerna 1.2 @ 50ml/hr x 24 hrs ENTERAL NUTRITION RECOMMENDATIONS: Glucerna 1.2 @ 50ml/hr x 24 hrs to provide 1200ml, 1440 kcal, 72g prot, 966ml free water - Maintain current TF: meets 100% est kcal/prot needs - Flush per MD / HOB over 30 degrees Monitor K and renal fxn, need for renal TF ADDITIONAL RECOMMENDATIONS: 1) Per SNF-> 58" tall and 135 lbs Maintain calibrated bed scale wts 2) Wound care: add FRANKY in 4oz H2O BID via GT add Nephrovite x1 + Vit C per MD 3) Monitor lytes and renal labs -> K now wnl, Creat wnl, monitor trend, need to change TF to Nepro 4) Monitor BGs closely w/ TF @ goal + D5 IVF
--- NOTE | 2019-07-02 11:27 | NUR ---
CASE MANAGEMENT:REVIEW 07/02/19 SI: SEPSIS D/T BACTEREMIA AND UTI. AMI COVID NEGATIVE 98.1 75 19 151/71 98% ON RA H/H-10.2/32.0 PLT-146 NA+159 IS: IV VANCOMYCIN Q24HRS IV ROCEPHIN Q24 IV PROTONIX Q12 IVF@100/HR LOPRESSOR PO Q12 NTG PATCH Q24 : TELEMETRY STATUS DCP: FROM [facility] PLAN: CONTINUE IV ANTIBIOTICS
--- NOTE | 2019-07-02 11:39 | NUR ---
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
[2019-07-02 12:00] VITALS: BP 137/64
--- NOTE | 2019-07-02 12:54 | NUR ---
NURSE NOTES: Feeding machine is not working, per central supply there is no more machines available.
[2019-07-02 16:00] VITALS: BP 126/68
[2019-07-02] MEDS: Nitroglycerin Patch 0.4mg TDERMAL SCH (17:22)
--- NOTE | 2019-07-02 17:49 | Nephrology Progress Note ---
Assessment/Plan Problem List: (1) Vaginal bleeding (2) Hypernatremia (3) Acute myocardial ischemia (4) Dehydration (5) JEANETH (acute kidney injury) (6) Acute encephalopathy (7) Sepsis (8) Hyperglycemia (9) Hyperkalemia, diminished renal excretion (10) UTI (urinary tract infection) (11) Anemia due to blood loss, acute Plan iv adjusted, titrate inulin tube feed Subjective ROS Limited/Unobtainable: Yes Objective Objective Last 24 Hour Vital Signs Date Time Temp Pulse Resp B/P (MAP) Pulse Ox O2 Delivery O2 Flow Rate FiO2 07/02/19 17:22 126/68 07/02/19 10:21 75 151/71 07/02/19 08:15 98.1 75 19 151/71 (97) 98 07/02/19 04:00 73 07/02/19 04:00 96.6 74 18 129/65 (86) 98 07/02/19 00:00 72 07/02/19 00:00 98.0 69 18 125/48 (73) 97 07/01/19 21:00 84 137/90 07/01/19 21:00 Room Air 07/01/19 20:00 78 07/01/19 20:00 97.7 84 19 137/90 (106) 97 Intake and Output 07/01/19 07/02/19 19:00 07:00 Intake Total 1645 ml 1175 ml Output Total 550 ml 1000 ml Balance 1095 ml 175 ml Free Water 100 ml 180 ml IV Total 1275 ml 955 ml Tube Feeding 270 ml 40 ml Output Urine Total 550 ml 800 ml Stool Total 200 ml # Bowel Movements 2 3 Laboratory Tests 07/02/19 06:26: White Blood Count 8.5, Red Blood Count 4.01L, Hemoglobin 10.2L, Hematocrit 32.0L , Mean Corpuscular Volume 80, Mean Corpuscular Hemoglobin 25.5L, Mean Corpuscular Hemoglobin Concent 31.9L, Red Cell Distribution Width 15.0H, Platelet Count 146L, Mean Platelet Volume 9.3, Neutrophils (%) (Auto) 65.6, Lymphocytes (%) (Auto) 27.5, Monocytes (%) (Auto) 4.3, Eosinophils (%) (Auto) 2.2, Basophils (%) (Auto) 0.4, Sodium Level 159H, Potassium Level 3.9, Chloride Level 125H, Carbon Dioxide Level 20L, Anion Gap 15, Blood Urea Nitrogen 34H, Creatinine 1.2, Estimat Glomerular Filtration Rate 52.5, Glucose Level 193H, Calcium Level 8.8, Troponin I 0.042, Pro-B-Type Natriuretic Peptide 803H, Random Vancomycin Level 9.6 Height (Feet): 5 Height (Inches): 5.00 Weight (Pounds): 160 General Appearance: lethargic, confused EENT: normal ENT inspection Neck: normal alignment Cardiovascular: normal rate, regular rhythm Respiratory/Chest: lungs clear Extremities: no edema Neurologic: motor weakness Kristopher Storm MD Jul 02, 2019 17:49
--- NOTE | 2019-07-02 19:35 | NUR ---
NURSE NOTES: Received pt and report from NANI Bey. Observed pt resting in bed with both eyes open. Pt is A/Ox1. stable helper is in placed; pt is NSR. Pt has a GRIFFIN midline; intact asymptomatic, and patent. G-tube feeding of Glucerna 1.2 @40cc/hr; no residual noted, HOB at 30 degrees. Bed is in the lowest position and locked. Call light and bedside table is within reach. No signs/symptoms of acute distress noted at this time. Will continue plan of care.
--- NOTE | 2019-07-02 19:45 | NUR ---
HAND-OFF: Report given to Aurelia/RN, pt in stable condition on on G tube feeding at 40 ml/hr goal 50.
[2019-07-02 20:00] VITALS: BP 148/65
[2019-07-02] MEDS: Dyna-Hex 2% Top Sol 2oz TOPIC SCH (20:15)
[2019-07-02] MEDS: cefTRIAXone 1 GM in D5W 50 ML IVPB SCH (21:20)
[2019-07-02] MEDS: Levemir Flexpen SUBQ SCH (21:33)
[2019-07-03] VITALS: BP 146/70
[2019-07-03] MEDS: NovoLOG Insulin Flexpen SUBQ SCH ×4 (00:50→17:55)
[2019-07-03 04:00] VITALS: BP 144/57
--- NOTE | 2019-07-03 06:45 | Progress Note ---
DATE: 07/02/2019 SUBJECTIVE: The patient remains on IV fluids, insulin, and tube feedings. OBJECTIVE: Blood pressure 151/71, pulse 75, respiratory rate 19. Afebrile. Oxygen saturation on room air 97%. LABORATORY DATA: White count 8.6, hemoglobin . Sodium 159, potassium 3.9, bicarb 20, chloride 125, BUN 34, creatinine 1.2, pro-natriuretic peptide . Echocardiogram reveals normal ejection fraction, degenerative valve disease. No signs of acute valvular infection. IMPRESSION: 1. Dehydration. 2. Severe hypernatremia. 3. Possible bacteremia likely contaminant; if true bacteremia, endocarditis needs to be considered. 4. Metabolic encephalopathy. 5. Type 2 diabetes mellitus with hyperglycemia. 6. Possible non-ST elevation myocardial infarction or acute myocardial ischemia, resolved. PLAN: Continue hypotonic fluid hydration. Titration of insulin. Follow up cultures. Antimicrobials. Ck Lazaro M.D. DR: Juan Antonio JOB#: [id number] CC:
[2019-07-03 07:25] LABS: BASOPHILS % (AUTO) 0.4 % (0.0-2.0); EOSINOPHILS % (AUTO) 1.6 % (0.0-3.0); HEMATOCRIT 31.4 % (37.0-47.0); HEMOGLOBIN 10.6 G/DL (12.0-16.0); LYMPHOCYTES % (AUTO) 38.7 % (20.0-45.0); MEAN CORPUSCULAR VOLUME 79 FL (80-99); MONOCYTES % (AUTO) 3.8 % (1.0-10.0); NEUTROPHILS % (AUTO) 55.4 % (45.0-75.0); PLATELET COUNT 160 K/UL (150-450); WHITE BLOOD COUNT 8.1 K/UL (4.8-10.8)
--- NOTE | 2019-07-03 07:49 | NUR ---
HAND-OFF: Report given to NANI Bey. Plan of care endorsed.
[2019-07-03 08:00] VITALS: BP 149/64
[2019-07-03 08:03] LABS: ANION GAP 12 mmol/L (5-15); BLOOD UREA NITROGEN 23 mg/dL (7-18); CALCIUM 7.9 MG/DL (8.5-10.1); CARBON DIOXIDE 19 MMOL/L (21-32); CHLORIDE 117 MMOL/L (98-107); SODIUM 148 MMOL/L (136-145)
[2019-07-03] MEDS: Metoprolol Tartrate 50mg tab ORAL SCH ×2 (11:40→21:15)
[2019-07-03] MEDS: Pantoprazole Inj IVP SCH ×2 (11:40→21:14)
[2019-07-03 12:00] VITALS: BP 144/63
--- NOTE | 2019-07-03 12:11 | Nephrology Progress Note ---
Assessment/Plan Problem List: (1) Vaginal bleeding (2) Hypernatremia (3) Acute myocardial ischemia (4) Dehydration (5) JEANETH (acute kidney injury) (6) Acute encephalopathy (7) Sepsis (8) Hyperglycemia (9) Hyperkalemia, diminished renal excretion (10) UTI (urinary tract infection) (11) Anemia due to blood loss, acute Plan iv adjusted, titrate inulin tube feedwith water flushes Subjective ROS Limited/Unobtainable: Yes Constitutional: Reports: weakness Objective Objective Last 24 Hour Vital Signs Date Time Temp Pulse Resp B/P (MAP) Pulse Ox O2 Delivery O2 Flow Rate FiO2 07/03/19 11:40 86 141/63 07/03/19 09:08 Room Air 07/03/19 04:00 98.2 73 20 144/57 (86) 100 07/03/19 04:00 72 07/03/19 00:00 69 07/03/19 00:00 98.2 73 18 146/70 (95) 100 07/02/19 21:20 74 148/65 07/02/19 21:00 Room Air 07/02/19 20:00 67 07/02/19 20:00 98.1 74 18 148/65 (92) 100 07/02/19 17:22 126/68 07/02/19 16:00 76 07/02/19 16:00 97.7 76 19 126/68 (87) 94 Intake and Output 07/02/19 07/03/19 19:00 07:00 Intake Total 50 ml Output Total 650 ml 400 ml Balance -650 ml -350 ml Tube Feeding 50 ml Output Urine Total 650 ml 400 ml # Bowel Movements 2 2 Laboratory Tests 07/03/19 06:37: White Blood Count 8.1, Red Blood Count 4.00L, Hemoglobin 10.6L, Hematocrit 31.4L , Mean Corpuscular Volume 79L, Mean Corpuscular Hemoglobin 26.6L, Mean Corpuscular Hemoglobin Concent 33.8, Red Cell Distribution Width 15.0H, Platelet Count 160, Mean Platelet Volume 9.4, Neutrophils (%) (Auto) 55.4, Lymphocytes (%) (Auto) 38.7, Monocytes (%) (Auto) 3.8, Eosinophils (%) (Auto) 1.6, Basophils (%) (Auto) 0.4, Sodium Level 148H, Potassium Level 4.0, Chloride Level 117H, Carbon Dioxide Level 19L, Anion Gap 12, Blood Urea Nitrogen 23H, Creatinine 1.0, Estimat Glomerular Filtration Rate > 60, Glucose Level 265H, Calcium Level 7.9L Height (Feet): 5 Height (Inches): 5.00 Weight (Pounds): 160 General Appearance: lethargic EENT: normal ENT inspection Neck: normal alignment Cardiovascular: normal rate, regular rhythm Respiratory/Chest: lungs clear Abdomen: non tender Neurologic: disoriented Kristopher Storm MD Jul 03, 2019 12:11
[2019-07-03] MEDS: Vancomycin 750mg/NS 275ml IVPB SCH ×2 (13:33)
[2019-07-03 16:00] VITALS: BP 133/56
--- NOTE | 2019-07-03 16:19 | NUR ---
NURSE NOTES: wound care nurse recommended physician consult to evaluate wound, called and spoke with dr viera and was notified of pt wound sacral DTI and right heel DTI according to him, pt is for dc plan tomorrow and don't need physician consult, and okay the wound care recommendation, orders carried out.
[2019-07-03] MEDS: Nitroglycerin Patch 0.4mg TDERMAL SCH (17:52)
--- NOTE | 2019-07-03 19:50 | NUR ---
NURSE NOTES: Received pt and report from NANI Bey. Observed pt resting in bed with both eyes closed, arousable to voice. Pt is A/Ox1. bluing oven tender is in placed; pt is NSR. Pt has a GRIFFIN midline; intact, asymptomatic, and patent; running 1/2 NS @50cc/hr. G-tube feeding of Glucerna 1.2 @50cc/hr; no residual noted, HOB at 30 degrees. Pt has a Ferrara present for retention; urine is yellow in color. Bed is in the lowest position and locked. Call light and bedside table is within reach. No signs/symptoms of acute distress noted at this time. Will continue plan of care.
[2019-07-03 20:00] VITALS: BP 154/48
--- NOTE | 2019-07-03 20:01 | NUR ---
HAND-OFF: Report given to Aurelia/rn pt in stable condition.
[2019-07-03] MEDS: Dyna-Hex 2% Top Sol 2oz TOPIC SCH (21:14)
[2019-07-03] MEDS: cefTRIAXone 1 GM in D5W 50 ML IVPB SCH (21:14)
[2019-07-03] MEDS: Levemir Flexpen SUBQ SCH (21:16)
--- NOTE | 2019-07-03 22:18 | Infectious Diseases Prog Note ---
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 COVID-19 virus testing - negative 3. Diabetes. 4. Hypertension. 5. Blood sugar and blood pressure treatment per primary care team for diabetes and hypertension. 6. CVA. 7. Weakness. 8. Aspiration risk. 9. Hemiparesis. 10. Wound care protocol. 11. Hyperlipidemia. 12. Anemia. 13. Cerebral infarction. 14. Dysphagia. 15. Continue treatment per primary consults. 16. No known drug allergies. 17. Social history negative. 18. Family history noncontributory. 19. MAR was noted. 20. Case discussed with RN. Subjective Constitutional: Reports: fatigue, other - more alert ; Denies: fever HEENT: Denies: congestion Respiratory: Reports: shortness of breath Cardiovascular: Denies: chest pain Gastrointestinal/Abdominal: Denies: nausea, vomiting, diarrhea Genitourinary: Reports: other - + pack Neurologic: Denies: headache Psychiatric: Reports: other - NA Skin: Denies: rash Hematologic: Denies: bleeding Musculoskeletal: Reports: other - NA Allergies: Coded Allergies: No Known Allergies (Unverified , 03/20/18) Objective Vital Signs Last 24 Hour Vital Signs Date Time Temp Pulse Resp B/P (MAP) Pulse Ox O2 Delivery O2 Flow Rate FiO2 07/03/19 21:15 71 154/48 07/03/19 17:52 139/56 07/03/19 16:00 77 07/03/19 16:00 97.9 75 18 133/56 (81) 98 07/03/19 12:00 98.6 86 18 144/63 (90) 100 07/03/19 12:00 75 07/03/19 11:40 86 141/63 07/03/19 09:08 Room Air 07/03/19 08:00 70 07/03/19 08:00 99.3 78 18 149/64 (92) 100 07/03/19 04:00 98.2 73 20 144/57 (86) 100 07/03/19 04:00 72 07/03/19 00:00 69 07/03/19 00:00 98.2 73 18 146/70 (95) 100 Height (Feet): 5 Height (Inches): 5.00 Weight (Pounds): 160 General Appearance: no acute distress HEENT: normocephalic, atraumatic, anicteric, mucous membranes moist Respiratory/Chest: lungs clear, normal breath sounds, no respiratory distress, no accessory muscle use Cardiovascular: normal rate, regular rhythm, no gallop/murmur, no JVD Abdomen: normal bowel sounds, soft, non tender, no organomegaly, non distended Genitourinary: other - + pack - urine slt cloudy Extremities: no cyanosis Skin: no rash Neurologic/Psychiatric: 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 Heart size is normal. There are degenerative changes of the thoracic spine Impression: No acute process Microbiology Date/Time Source Procedure Growth Status 06/30/19 06:15 Blood Blood Culture - Preliminary NO GROWTH AFTER 48 HOURS Resulted 07/01/19 08:55 Nasopharynx Coronavirus COVID-19 PCR (ATUL) - Final Complete 06/27/19 11:50 Urine,Clean Catch Urine Culture - Final Klebsiella Pneumoniae Complete 06/27/19 17:30 Rectum VRE Culture - Final NO VANCOMYCIN RESISTANT ENTEROCOCCUS ... Complete Microbiology Date/Time Source Procedure Growth Status 07/01/19 08:55 Nasopharynx Coronavirus COVID-19 PCR (ATUL) - Final Complete Laboratory Tests Test 07/03/19 06:37 White Blood Count 8.1 K/UL (4.8-10.8) Red Blood Count 4.00 M/UL (4.20-5.40) L Hemoglobin 10.6 G/DL (12.0-16.0) L Hematocrit 31.4 % (37.0-47.0) L Mean Corpuscular Volume 79 FL (80-99) L Mean Corpuscular Hemoglobin 26.6 PG (27.0-31.0) L Mean Corpuscular Hemoglobin Concent 33.8 G/DL (32.0-36.0) Red Cell Distribution Width 15.0 % (11.6-14.8) H Platelet Count 160 K/UL (150-450) Mean Platelet Volume 9.4 FL (6.5-10.1) Neutrophils (%) (Auto) 55.4 % (45.0-75.0) Lymphocytes (%) (Auto) 38.7 % (20.0-45.0) Monocytes (%) (Auto) 3.8 % (1.0-10.0) Eosinophils (%) (Auto) 1.6 % (0.0-3.0) Basophils (%) (Auto) 0.4 % (0.0-2.0) Sodium Level 148 MMOL/L (136-145) H Potassium Level 4.0 MMOL/L (3.5-5.1) Chloride Level 117 MMOL/L (98-107) H Carbon Dioxide Level 19 MMOL/L (21-32) L Anion Gap 12 mmol/L (5-15) Blood Urea Nitrogen 23 mg/dL (7-18) H Creatinine 1.0 MG/DL (0.55-1.30) Estimat Glomerular Filtration Rate > 60 mL/min (>60) Glucose Level 265 MG/DL (74-106) H Calcium Level 7.9 MG/DL (8.5-10.1) L Current Medications Medications (Trade) Dose Ordered Sig/Aldo Route PRN Reason Start Time Stop Time Status Last Admin Dose Admin Acetaminophen (Tylenol) 650 mg Q4H PRN RECTAL Mild Pain (Pain Scale 1-3) 06/27/19 16:00 07/27/19 15:59 Acetaminophen (Tylenol) 650 mg Q4H PRN RECTAL fever 06/27/19 16:00 07/27/19 15:59 Ceftriaxone Sodium 1 gm/ Dextrose 50 ml @ 100 mls/hr Q24H IVPB 07/01/19 21:00 07/08/19 20:59 07/03/19 21:14 Chlorhexidine Gluconate (Amy-Hex 2%) 1 applic DAILY@2000 TOPIC 06/29/19 20:00 09/27/19 19:59 07/03/19 21:14 Dextrose (Dextrose 50%) 25 ml Q30M PRN IV Hypoglycemia 06/27/19 16:00 09/25/19 15:59 Dextrose (Dextrose 50%) 50 ml Q30M PRN IV Hypoglycemia 06/27/19 16:00 09/25/19 15:59 Insulin Aspart (NovoLOG) Q6HR SUBQ 07/01/19 18:00 09/25/19 16:29 07/03/19 17:55 Insulin Detemir (Levemir) 36 units BEDTIME SUBQ 07/02/19 21:00 09/30/19 20:59 07/03/19 21:16 Metoprolol Tartrate (Lopressor) 50 mg Q12HR ORAL 07/02/19 09:00 09/30/19 08:59 07/03/19 21:15 Nitroglycerin (Ntg) 0.4 mg Q5M PRN SL Prn Chest Pain 06/27/19 16:00 07/27/19 15:59 Nitroglycerin (Ntg) 1 patch Q24H TDERMAL 06/27/19 17:00 07/27/19 16:59 07/03/19 17:52 Ondansetron HCl (Zofran) 4 mg Q6H PRN IVP Nausea & Vomiting 06/27/19 16:00 07/27/19 15:59 Pantoprazole (Protonix) 40 mg EVERY 12 HOURS IVP 06/28/19 21:00 07/28/19 20:59 07/03/19 21:14 Polyethylene Glycol (Miralax) 17 gm DAILYPRN PRN ORAL Constipation 06/27/19 16:00 07/27/19 15:59 Sodium Chloride 1,000 ml @ 50 mls/hr Q20H IV 07/03/19 12:33 08/02/19 12:32 07/03/19 13:32 Vancomycin HCl (Vanco rx to dose) 1 ea DAILY PRN MISC Per rx protocol 06/28/19 12:15 07/28/19 12:14 Vancomycin HCl 750 mg/Sodium Chloride 275 ml @ 183.333 mls/hr Q24H IVPB 07/02/19 10:00 07/07/19 09:59 07/03/19 13:33 Caio Shaffer MD Jul 03, 2019 22:18
[2019-07-04] VITALS: BP 148/53
[2019-07-04] MEDS: NovoLOG Insulin Flexpen SUBQ SCH ×4 (00:30→18:08)
[2019-07-04 04:00] VITALS: BP 160/71
--- NOTE | 2019-07-04 04:45 | Progress Note ---
DATE: 07/03/2019 CARDIOLOGY PROGRESS NOTE SUBJECTIVE: The patient remained with labile glucose readings. Blood pressure parameters are stabilizing. Monitored rhythm is sinus with rare atrial ectopics. OBJECTIVE: VITAL SIGNS: Blood pressure 154/48, pulse 71, respirations 18, and afebrile. LUNGS: Clear. CARDIAC: Regular. Normal S1 and S2 with a fourth heart sound. ABDOMEN: Soft. GENITOURINARY: Ferrara catheter with cloudy urine. EXTREMITIES: No edema. LABORATORY DATA: White count 8.1 and hemoglobin 10.6. Sodium 148, potassium 4, bicarb 19, chloride 117, BUN 23, and creatinine 1. IMPRESSION: 1. Non ST-elevation myocardial infarction. 2. Acute diastolic congestive heart failure, improved clinically. 3. Severe protein-calorie malnutrition. 4. Coag-negative Staph bacteremia. 5. Severe dehydration. 6. Hypernatremia. 7. Hyperchloremia. 8. Metabolic acidosis. 9. Prerenal azotemia with acute kidney injury, all improved. PLAN: 1. Hypotonic IV fluids. 2. Antimicrobials. 3. Surveillance blood cultures. 4. Antimicrobials. 5. DVT prophylaxis. 6. Insulin titration. 7. Maintain beta-blockade. 8. Add aspirin if no signs of active bleeding. Ck Lazaro M.D. DR: FERNANDO JOB#: [id number] CC:
--- NOTE | 2019-07-04 07:10 | NUR ---
NURSE NOTES:Handoff received from NANI Moses. Patient received resting in bed, no acute signs of distress noted. Patient is non-verbal. Gtube feeding running at prescribed rate. Patient has right upper arm picc line running 1/2NS at 50ml/hr. patient is on room air. bed in the low and locked position with call light within reach, will continue to monitor patient.
[2019-07-04 08:00] VITALS: BP 177/67
--- NOTE | 2019-07-04 08:13 | NUR ---
HAND-OFF: Report given to NANI Coyle. Plan of care endorsed.
[2019-07-04] MEDS: Pantoprazole Inj IVP SCH (08:33)
[2019-07-04] MEDS: Metoprolol Tartrate 50mg tab ORAL SCH ×2 (08:33→20:46)
--- NOTE | 2019-07-04 09:15 | NUR ---
NURSE NOTES: Noticed patients right arm is swollen and tight, possible infiltration of the midline. stopped the IV fluids and left a message for Dr Storm to update him on patient status.
[2019-07-04 09:40] LABS: BASOPHILS % (AUTO) 0.4 % (0.0-2.0); EOSINOPHILS % (AUTO) 1.4 % (0.0-3.0); HEMATOCRIT 31.2 % (37.0-47.0); HEMOGLOBIN 10.2 G/DL (12.0-16.0); LYMPHOCYTES % (AUTO) 21.5 % (20.0-45.0); MEAN CORPUSCULAR VOLUME 79 FL (80-99); MONOCYTES % (AUTO) 4.8 % (1.0-10.0); NEUTROPHILS % (AUTO) 71.9 % (45.0-75.0); PLATELET COUNT 145 K/UL (150-450); RED BLOOD COUNT 3.95 M/UL (4.20-5.40); RED CELL DISTRIBUTION WIDTH 14.9 % (11.6-14.8)
[2019-07-04 09:48] LABS: ANION GAP 11 mmol/L (5-15); BLOOD UREA NITROGEN 19 mg/dL (7-18); CALCIUM 8.1 MG/DL (8.5-10.1); CARBON DIOXIDE 21 MMOL/L (21-32); CHLORIDE 115 MMOL/L (98-107); CREATININE 0.8 MG/DL (0.55-1.30); POTASSIUM 4.3 MMOL/L (3.5-5.1); SODIUM 147 MMOL/L (136-145)
[2019-07-04 10:05] LABS: PHOSPHORUS 2.7 MG/DL (2.5-4.9)
--- NOTE | 2019-07-04 10:14 | NUR ---
CASE MANAGEMENT:REVIEW 07/04/19 SI: SEPSIS D/T BACTEREMIA AND UTI. NSTEMI COVID NEGATIVE 98.4 77 18 177/67 96% ON RA H/H-10.2/31.2 PLT-145 NA_147 TROPONIN(+) 0.070 IS: IV VANCOMYCIN Q24 IV ROCEPHIN Q24 IVF@50/HR IV PROTONIX Q12 LOPRESSOR PO Q12 LEVEMIR SQ QHS : TELEMETRY STATUS DCP: FROM [facility] PLAN: CONTINUE IV ANTIBIOTICS ACCEPTED BACK TO [facility] ROOM 9 BED #3
--- NOTE | 2019-07-04 10:22 | NUR ---
DISCHARGE PLANNING PATIENT HAS BEEN ACCEPTED BACK TO [facility] ROOM 9 BED #3 AWAIT DISCHARGE ORDER FROM DR ORONA Addendum: 07/04/19 at 1500 by MARYBEL WOMACK LVN LVN NEW DVT DISCOVERED TODAY HOLDING DISCHARGE FOR NOW JONES AT [facility] NOTIFIED
[2019-07-04] MEDS ORDERED: Vancomycin 1 GM in NS 275 ML IVPB SCH (11:00)
[2019-07-04] MEDS ORDERED: Vancomycin 1.25gm/NS Premix IVPB SCH ×2 (11:00)
[2019-07-04 12:00] VITALS: BP 169/75
--- NOTE | 2019-07-04 14:48 | NUR ---
NURSE NOTES:Venous duplex preliminary result is positive for DVT. called and left message informing Dr Storm of preliminary result.
--- NOTE | 2019-07-04 15:01 | Diagnostic Imaging Report ---
Indication: Right upper extremity pain with edema and swelling Technique: Grayscale and duplex Doppler imaging of the veins in right upper extremity performed in real time utilizing compression and augmentation. Comparison: None Findings: Right internal jugular vein is patent and compressible with normal color flow. Imaged portions of the right subclavian vein appear patent with normal color flow. A catheter is visualized in the right brachial and axillary veins. There is lack compressibility of the veins around the catheter suggesting thrombosis. Some color flow is noted within the right axillary vein suggesting this thrombus is not complete. Visualized portions of the right basilic and cephalic veins appear patent and normally compressible. IMPRESSION: Exam positive for right upper extremity DVT, associated with indwelling catheter. Findings communicated to the patient's treating nurse on 2 E.
[2019-07-04 15:58] VITALS: BP 170/74
--- NOTE | 2019-07-04 15:59 | NUR ---
NURSE NOTES:Called and left a message for Dr Storm as patient BP is elevated and currently does not have any PRN BP medications.
--- NOTE | 2019-07-04 16:11 | NUR ---
NURSE NOTES:Midline discontinued per MD orders. No bleeding noted.
[2019-07-04] MEDS: Nitroglycerin Patch 0.4mg TDERMAL SCH (16:43)
--- NOTE | 2019-07-04 18:51 | NUR ---
NURSE NOTES:Called Dr Storm for the second time and left another message on his voicemail alerting him of patients elevated blood pressure and no PRN BP medications. BP reassessed at 1845 BP is 169/74
--- NOTE | 2019-07-04 19:41 | NUR ---
HAND-OFF: Report given to NANI Moralez.
--- NOTE | 2019-07-04 19:45 | NUR ---
NURSE NOTES: Received report from NANI Coyle. Patient is awake, alert and oriented x 1. Patient has g-tube, glucerna 1.2 50cc/hour, flushing of 200 cc QID. On room air, with no respiratory distress noted at this time. monitor technician is on placed, shows sinus rhythm and currently no chest pain nor discomfort. Patient is bedbound, on fall and aspiration precaution. Safety measures in placed, bed in low and locked position. Side rails up x 2, bed alarm is on. Call light and bedside table within reach. Instructed to call for any assistance needed. Will continue plan of care.
--- NOTE | 2019-07-04 19:48 | General Progress Note ---
Assessment/Plan Problem List: (1) Vaginal bleeding ICD Codes: N93.9 - Abnormal uterine and vaginal bleeding, unspecified SNOMED: 735103876 (2) Hypernatremia ICD Codes: E87.0 - Hyperosmolality and hypernatremia SNOMED: 698484053 (3) Acute myocardial ischemia ICD Codes: I24.9 - Acute ischemic heart disease, unspecified SNOMED: 198285481 (4) Dehydration ICD Codes: E86.0 - Dehydration SNOMED: 47944048 (5) JEANETH (acute kidney injury) ICD Codes: N17.9 - Acute kidney failure, unspecified SNOMED: 4348356, 05708841 (6) Acute encephalopathy ICD Codes: G93.40 - Encephalopathy, unspecified SNOMED: 47691033, 951369242 (7) Sepsis ICD Codes: A41.9 - Sepsis, unspecified organism SNOMED: 87895727, 884226646 Qualifiers: Qualified Codes: A41.9 - Sepsis, unspecified organism (8) Hyperglycemia ICD Codes: R73.9 - Hyperglycemia, unspecified SNOMED: 97130068, 849893576 (9) Hyperkalemia, diminished renal excretion ICD Codes: E87.5 - Hyperkalemia SNOMED: 78009217, 116310779 (10) UTI (urinary tract infection) ICD Codes: N39.0 - Urinary tract infection, site not specified SNOMED: 52413085, 773330338 Qualifiers: Qualified Codes: N39.0 - Urinary tract infection, site not specified (11) Anemia due to blood loss, acute ICD Codes: D62 - Acute posthemorrhagic anemia SNOMED: 707592715 (12) DVT of axillary vein, acute right ICD Codes: I82.A11 - Acute embolism and thrombosis of right axillary vein SNOMED: 380232413247283 (13) Non-ST elevated myocardial infarction ICD Codes: I21.4 - Non-ST elevation (NSTEMI) myocardial infarction SNOMED: 79939499 Assessment/Plan: r arm iv line removed, dvt should resolve without anticoag, free water via feeding tube change to po rx for uti Subjective ROS Limited/Unobtainable: Yes Allergies: Coded Allergies: No Known Allergies (Unverified , 03/20/18) Objective Last 24 Hour Vital Signs Date Time Temp Pulse Resp B/P (MAP) Pulse Ox O2 Delivery O2 Flow Rate FiO2 07/04/19 16:43 170/74 07/04/19 16:00 59 07/04/19 15:58 98.6 72 18 170/74 (106) 96 07/04/19 12:00 98.2 57 18 169/75 (106) 97 07/04/19 12:00 73 07/04/19 08:52 Room Air 07/04/19 08:33 77 177/67 07/04/19 08:00 98.4 77 18 177/67 (103) 96 07/04/19 08:00 73 07/04/19 04:00 76 07/04/19 04:00 97.3 81 20 160/71 (100) 97 07/04/19 00:00 56 07/04/19 00:00 97.9 77 19 148/53 (84) 99 07/03/19 21:15 71 154/48 07/03/19 21:00 61 07/03/19 21:00 Room Air 07/03/19 20:00 98.1 64 19 154/48 (83) 98 Intake and Output 07/03/19 07/04/19 19:00 07:00 Output Total 400 ml 800 ml Balance -400 ml -800 ml Output Urine Total 400 ml 800 ml # Bowel Movements 1 Laboratory Tests 07/04/19 06:30: Stool Occult Blood Positive 07/04/19 08:50: White Blood Count 9.0, Red Blood Count 3.95L, Hemoglobin 10.2L, Hematocrit 31.2L , Mean Corpuscular Volume 79L, Mean Corpuscular Hemoglobin 25.8L, Mean Corpuscular Hemoglobin Concent 32.7, Red Cell Distribution Width 14.9H, Platelet Count 145L, Mean Platelet Volume 10.0, Neutrophils (%) (Auto) 71.9, Lymphocytes (%) (Auto) 21.5, Monocytes (%) (Auto) 4.8, Eosinophils (%) (Auto) 1.4, Basophils (%) (Auto) 0.4, Sodium Level 147H, Potassium Level 4.3, Chloride Level 115H, Carbon Dioxide Level 21, Anion Gap 11, Blood Urea Nitrogen 19H, Creatinine 0.8, Estimat Glomerular Filtration Rate > 60, Glucose Level 194H, Calcium Level 8.1L, Phosphorus Level 2.7, Magnesium Level 2.1, Troponin I 0.070H , Pro-B-Type Natriuretic Peptide 2241H, Vancomycin Level Trough 10.2 Height (Feet): 5 Height (Inches): 5.00 Weight (Pounds): 183 General Appearance: no apparent distress, confused EENT: normal ENT inspection Neck: normal alignment Cardiovascular: normal rate, regular rhythm Respiratory/Chest: lungs clear Abdomen: soft Extremities: other - r arm swollen Kristopher Storm MD Jul 04, 2019 19:48
[2019-07-04 20:00] VITALS: BP 178/61
[2019-07-04] MEDS: Dyna-Hex 2% Top Sol 2oz TOPIC SCH (20:00)
[2019-07-04] MEDS: Cephalexin 500mg cap GT SCH (20:46)
[2019-07-04] MEDS ORDERED: Levemir Flexpen SUBQ SCH (21:00)
[2019-07-05] VITALS: BP 119/63
[2019-07-05] MEDS: NovoLOG Insulin Flexpen SUBQ SCH ×3 (00:37→12:00)
--- NOTE | 2019-07-05 02:59 | Progress Note ---
DATE: 07/04/2019 CARDIOLOGY PROGRESS NOTE SUBJECTIVE: The patient has no IV access at this time. Her right arm was swollen. Venous duplex revealed a thrombus. The PICC line was removed. PHYSICAL EXAMINATION: VITAL SIGNS: Blood pressure 170/74, heart rate 72, respiratory rate 18, afebrile, oxygen saturation 96% on room air. Monitored rhythm sinus with rare atrial ectopy. LUNGS: Good breath sounds. No wheezing. No rales. CARDIAC: Regular rhythm and rate. Normal S1, S2. A 1/6 systolic murmur at apex. ABDOMEN: Soft. EXTREMITIES: There is no edema. LABORATORY DATA: White count 9, hemoglobin 10. Sodium 147, potassium 4.3, bicarb 21, BUN 19, creatinine 0.8. Troponin 0.07. Pro-natriuretic peptide 2200. IMPRESSION: 1. Non ST-elevation myocardial infarction. 2. Acute on chronic diastolic congestive heart failure. 3. Degenerative valve disease. 4. PICC line associated thrombus. 5. Dehydration, hypernatremia, hyperchloremia, improved. 6. Acute on chronic renal failure, resolving. 7. Hypertensive heart disease with suboptimal and still elevated blood pressure parameters. PLAN: Remove PICC line. No need for anticoagulation. Encourage free water intake. Titrate and optimize antihypertensive regimen. Add anti-platelet therapy since no signs of bleeding. Continue close observation and cardiac monitoring. Ck Lazaro M.D. DR: JOJO JOB#: [id number] CC:
[2019-07-05 04:00] VITALS: BP 120/66
--- NOTE | 2019-07-05 07:00 | NUR ---
NURSE NOTES:handoff received from NANI Moralez. Patient received awake and resting in bed, Gtube feed running at 50ml/hour. No IV access, Per MD orders. Patient on room air, no acute signs of distress noted. Bed in the low and locked position with call light on bed next to patient. will continue to monitor patient.
--- NOTE | 2019-07-05 07:12 | NUR ---
HAND-OFF: Report given to NANI Coyle. Patient is awake, on left lateral position. Plan of care endorsed.
[2019-07-05 07:52] LABS: BASOPHILS % (AUTO) 0.7 % (0.0-2.0); HEMOGLOBIN 10.6 G/DL (12.0-16.0); LYMPHOCYTES % (AUTO) 24.4 % (20.0-45.0); MEAN CORPUSCULAR VOLUME 78 FL (80-99); MONOCYTES % (AUTO) 5.3 % (1.0-10.0); NEUTROPHILS % (AUTO) 67.6 % (45.0-75.0); PLATELET COUNT 162 K/UL (150-450); RED BLOOD COUNT 4.09 M/UL (4.20-5.40); RED CELL DISTRIBUTION WIDTH 14.8 % (11.6-14.8); WHITE BLOOD COUNT 8.6 K/UL (4.8-10.8)
[2019-07-05 08:00] VITALS: BP 134/86
[2019-07-05 08:09] LABS: ANION GAP 10 mmol/L (5-15); BLOOD UREA NITROGEN 19 mg/dL (7-18); CALCIUM 8.7 MG/DL (8.5-10.1); CARBON DIOXIDE 23 MMOL/L (21-32); CHLORIDE 112 MMOL/L (98-107); CREATININE 0.7 MG/DL (0.55-1.30); POTASSIUM 4.3 MMOL/L (3.5-5.1); SODIUM 144 MMOL/L (136-145)
[2019-07-05] MEDS ORDERED: Aspirin Baby 81mg NG SCH (09:00)
[2019-07-05 09:01] VITALS: BP 134/86
[2019-07-05 09:07] VITALS: BP 134/86
[2019-07-05] MEDS: Metoprolol Tartrate 50mg tab ORAL SCH (09:07)
[2019-07-05] MEDS: Cephalexin 500mg cap GT SCH (09:07)
[2019-07-05] MEDS ORDERED: LEVEMIR FL100 UNIT/1 SUBQ (09:59)
[2019-07-05] MEDS ORDERED: NOVOLOG100 UNITS1 SUBQ (09:59)
[2019-07-05] MEDS ORDERED: NITRO0.4 SL (09:59)
[2019-07-05] MEDS ORDERED: KEFLEX500 M1 GT (09:59)
[2019-07-05] MEDS ORDERED: METOPROLOL TART50 MG ORAL (09:59)
[2019-07-05] MEDS ORDERED: NTG1 PATCH TDERMAL (09:59)
--- NOTE | 2019-07-05 10:34 | NUR ---
DISCHARGE PLANNING CALLED [facility] AND SPOKE WITH LOVE WHO PROVIDED ASSIGNED ROOM NUMBER DISCHARGE HAS BEEN ARRANGED [facility] ROOM 9 BED #3 SKILLED T: [phone] FOR NURSE TO NURSE REPORT [facility] HAS BEEN ARRANGED FOR 1230 HISTOLOGIC TECHNICIAN CALLED AND SPOKE WITH DAUGHTER,DOTTY, WHO IS IN AGREEMENT WITH DISCHARGE PLAN
--- NOTE | 2019-07-05 11:20 | NUR ---
NURSE NOTES:Ferrara Catheter removed per MD orders.
--- NOTE | 2019-07-05 12:10 | NUR ---
NURSE NOTES:Handoff report given to Liliana at [facility].
--- NOTE | 2019-07-05 12:45 | NUR ---
NURSE NOTES:Patient has not voided since removal of Ferrara. Called and spoke to Dr Stomr who stated that the long-term can monitor urine output and intervene if necessary. Per MD still okay to discharge patient without having urinated.
--- NOTE | 2019-07-05 13:15 | NUR ---
NURSE NOTES:Patient discharged and left with EMS vitals stable, no acute signs of distress noted. wound photos taken and uploaded.Patient had no IV access. Patient unable to sign belongings list, only belongings patient had listed was a heel protector, however could not find heel protector. ID bracelet removed.
[2019-07-05] MEDS ORDERED: NS 275ml ONE (14:09)
--- NOTE | 2019-07-05 23:45 | Discharge Summary ---
DATE OF ADMISSION: 06/27/2019 DATE OF DISCHARGE: 07/05/2019 PERTINENT HISTORY: The patient presented with uncontrolled diabetes, acute renal failure, hyperkalemia, weakness. She is a resident in [facility], has tube feedings, prior CVAs, type 2 diabetes. PERTINENT PHYSICAL FINDINGS: See my dictation. The patient is lethargic, eyes and mouth are closed. LUNGS: Clear. HEART: Regular rhythm. ABDOMEN: Soft with a gastrostomy. EXTREMITIES: No edema. NEUROLOGIC: She is aphasic and has hemiparesis. COURSE IN THE HOSPITAL: Her glucose is over 800 on admission. The patient's sodium was 163, potassium 5.8, BUN of 143. She was hydrated and given insulin management. She had a urinary tract infection with Klebsiella and was given appropriate antibiotic. She also had blood cultures showing Staph epidermidis, possibly contaminated, given vancomycin. The patient had an episode of bleeding likely vaginal bleeding while she was on anticoagulants, which were discontinued. Test for COVID-19 were negative. Laboratories gradually improved and on the day of discharge, her sodium 144, potassium 4.3, BUN 19, creatinine 0.7. Her glucose was much better control and she was discharged back to [facility] in improved condition. She also had laboratory abnormalities with elevated troponin consistent with a non-ST elevation myocardial infarction and was seen by Dr. Ck Lazaro, who suggested cardiac medications. She also developed right upper arm DVT secondary to PICC line, which resolved with removal of PICC line. She is at high risk for further bleeding from anticoagulants, which have been discontinued. FINAL DIAGNOSES: 1. Insulin-dependent diabetes with severe hyperglycemia. 2. Sepsis secondary to Klebsiella UTI. 3. Coag-negative Staph bacteremia. 4. Non ST-elevation myocardial infarction. 5. Severe dehydration. 6. Acute kidney injury secondary to dehydration. 7. Hypernatremia. 8. Hyperkalemia. 9. Metabolic acidosis. 10. Acute diastolic congestive heart failure. 11. Vaginal bleeding versus rectal bleeding secondary to anticoagulants. 12. DVT right upper arm. 13. Protein-calorie malnutrition. 14. History of CVA with aphasia. 15. History of dysphagia with GT feedings. 16. Neurogenic bladder. DISCHARGE DISPOSITION: To the [facility] on tube feedings and medications per the discharge medication list. Follow up by her primary care physician at the [facility]. Kristopher Storm M.D. DR: JAVY JOB#: [id number] CC:
--- NOTE | 2019-07-06 05:15 | Progress Note ---
DATE: 07/05/2019 CARDIOLOGY PROGRESS NOTE SUBJECTIVE: The patient is in no respiratory distress. PHYSICAL EXAMINATION: VITAL SIGNS: Blood pressure is 134/86, heart rate 77, respiratory rate 18, afebrile, room air oxygen 95% saturation. LABORATORY DATA: White count 8.6, hemoglobin 10.6. Sodium 144, potassium 4.3, bicarb 23, BUN 19, creatinine 0.7. IMPRESSION: 1. Acute myocardial infarction. 2. Acute on chronic diastolic congestive heart failure. 3. Acute renal failure. 4. Hyperchloremia. 5. Hypernatremia. 6. Dehydration. 7. Metabolic acidosis. 8. Toxic and metabolic encephalopathies. 9. Staphylococcal bacteremia and sepsis with shock. PLAN: All the above parameters have stabilized. The patient has made an excellent recovery. She is stable to return to her shelter facility to complete her recovery. Discharge medication regimen reviewed with Dr. Storm. Ck Lazaro M.D. DR: JOJO JOB#: [id number] CC:
== END 2019-07-05 14:10 | DRG 871 ==
LOC: EDBD 11:21 → EMR 13:00 → 2E 13:04 → EDBEDREQSVC 13:49 → EDBEDREQ 13:49 → 2E 07-01 12:57
PROC: 05H533Z Insertion of Infusion Device into Right Subclavian Vein, Percutaneous Approach (ICD-10-PCS; principal; 2019-06-29)
PROC: 30233N1 Transfusion of Nonautologous Red Blood Cells into Peripheral Vein, Percutaneous Approach (ICD-10-PCS; principal; 2019-06-29)
DX: A41.9 Sepsis, unspecified organism (principal); E11.01 Type 2 diabetes mellitus with hyperosmolarity with coma; G92 Toxic encephalopathy; I21.4 Non-ST elevation (NSTEMI) myocardial infarction; E43 Unspecified severe protein-calorie malnutrition; R65.21 Severe sepsis with septic shock; I50.33 Acute on chronic diastolic (congestive) heart failure; N39.0 Urinary tract infection, site not specified; N17.9 Acute kidney failure, unspecified; E87.0 Hyperosmolality and hypernatremia; D62 Acute posthemorrhagic anemia; I82.A11 Acute embolism and thrombosis of right axillary vein; I13.0 Hypertensive heart and chronic kidney disease with heart failure and stage 1 through stage 4 chronic kidney disease, or unspecified chronic kidney disease; E87.5 Hyperkalemia; I25.9 Chronic ischemic heart disease, unspecified; B96.1 Klebsiella pneumoniae [K. pneumoniae] as the cause of diseases classified elsewhere; E86.0 Dehydration; E11.65 Type 2 diabetes mellitus with hyperglycemia; Z79.4 Long term (current) use of insulin; R58 Hemorrhage, not elsewhere classified; T45.515A Adverse effect of anticoagulants, initial encounter; I69.320 Aphasia following cerebral infarction; N31.9 Neuromuscular dysfunction of bladder, unspecified; R13.10 Dysphagia, unspecified; N18.9 Chronic kidney disease, unspecified; E11.22 Type 2 diabetes mellitus with diabetic chronic kidney disease
CPT/HCPCS: 36415; 36569; 70450; 71045; 76937; 80048; 80053; 80202; 81003; 82009; 82270; 82553; 82962; 83605; 83735; 83880; 84100; 84443; 84484; 85007; 85025; 86710; 86850; 86900; 86901; 86920; 87040; 87081; 87086; 87181; 87635; 93005; 93306; 93931; 96361; 96365; 96375; 99285; J1815; J7030; S5561